=== PATIENT | female | born 1960 | race African-American/Black ===

== ENCOUNTER 2016-08-06 08:26 | Day surgery (SDC) ==
[2016-08-05 10:29] LABS: HEMATOCRIT 20.2 % (37.0-47.0); HEMOGLOBIN 6.3 g/dL (12.0-16.0); MCHC 31.2 g/dL (33-37); MCV 83.5 FL (81-99); PLT 228 X1000 (130-400); RBC 2.42 XMIL (4.2-5.4)
[2016-08-06] MEDS ORDERED: NS 250 ML ONE (08:37)
[2016-08-06] MEDS ORDERED: TYLENOL ONE (08:53)
[2016-08-06] MEDS ORDERED: BENADRYL ONE (08:53)
[2016-08-06] MEDS ORDERED: HEPARIN ONE (11:03)
[2016-08-06 12:47] VITALS: BP 137/65
== END 2016-08-06 12:45 | disposition home or self-care (01) ==
LOC: INF 08:26
PROVIDERS: ATTEND Nurse Practitioner
DX: D64.9 Anemia, unspecified (principal); D47.4 Osteomyelofibrosis; Z79.899 Other long term (current) drug therapy; Z79.84 Long term (current) use of oral hypoglycemic drugs; Z79.82 Long term (current) use of aspirin
CPT/HCPCS: 36430; 85027; 86850; 86900; 86901; 86920; J7050; P9016

== ENCOUNTER 2018-09-02 04:24 | Inpatient (IN) ==
--- NOTE | 2018-09-02 06:12 | PROVIDER DOCUMENTATION ---
HPI-General Adult - General Chief Complaint: Fall Stated Complaint: fall Time Seen by Provider: 09/02/18 05:10 Source: patient Allergies/Adverse Reactions: Patient Allergies Allergy/AdvReac Type Severity Reaction Status Date / Time etodolac [From Lodine] Allergy Mild ABDOMINAL Verified 06/15/18 05:54 PAIN Home Medications: Home Medication List Medication Instructions Recorded Confirmed Last Taken Type Carvedilol 25 mg PO BID 08/24/12 08/19/18 08/19/18 History Omeprazole [Prilosec] 40 mg PO DAILY 09/26/13 08/19/18 08/19/18 History Aspirin [[place] Aspirin EC] 81 mg PO DAILY 09/19/14 08/19/18 08/19/18 History Losartan/Hctz [Hyzaar 100/12.5 mg 1 tab PO DAILY 03/11/17 08/19/18 08/19/18 History Tab] Montelukast Sodium 10 mg PO DAILY 03/11/17 08/19/18 08/19/18 History Travoprost [Travatan Z] 1 drop BOTH EYES QHS 03/11/17 08/19/18 08/18/18 History Deferasirox [Exjade] 1,500 mg PO DAILY 05/21/17 08/19/18 08/18/18 History Docusate Sodium [Stool Softener] 100 mg PO BID 04/12/18 08/19/18 08/19/18 History Ruxolitinib Phosphate [Jakafi] 25 mg PO BID 04/12/18 08/19/18 08/19/18 History Docusate Sodium [Colace] 100 mg PO BID #30 capsule 06/15/18 08/19/18 08/19/18 Rx Hydroxyurea 500 mg PO DAILY 07/08/18 08/19/18 08/19/18 History Tramadol [Ultram] 50 mg PO Q8HR PRN #20 tab 07/23/18 08/19/18 08/18/18 Rx - History of Present Illness -Gen Adult Nature of Presenting Problems: 57 y/o presents to the ED complaining of generalized weakness. States when she got up out of bed today she felt weak and had a mechanical fall due to this weakness. No impaction of head and no other injuries. States since she has continued to feel weak. Has a blood transfusion scheduled with the infusion center today. No chest pain no dyspnea no cough no fever. Review of Systems - Adult - REVIEW OF SYSTEMS - ADULT Constitutional: reports: no symptoms reported Eyes: reports: no symptoms reported Ears, Nose, Mouth & Throat: reports: no symptoms reported Cardiovascular: reports: no symptoms reported Respiratory: reports: no symptoms reported Gastrointestinal: reports: no symptoms reported Genitourinary: reports: no symptoms reported Musculoskeletal: reports: no symptoms reported Integumentary: reports: no symptoms reported Neurological: reports: no symptoms reported Psychiatric: reports: no symptoms reported Endocrine: reports: no symptoms reported Hematologic/Lymphatic: reports: no symptoms reported Allergic/Immunologic: reports: no symptoms reported All Other Systems: Reviewed and Negative Past History - Adult - PAST MEDICAL HISTORY-ADULT Review of Records: reports: Old Records Reviewed, Nursing Assessment Review, Medications Reviewed, Social history reviewed & non-contributory. Major Childhood Illnesses: reports: denies history Cardiovascular: reports: denies history Respiratory: reports: denies history Gastrointestinal: reports: denies history Obstetrical/Gynecological: reports: denies history Genitourinary: reports: denies history Musculoskeletal: reports: denies history Neurological: reports: denies history Endocrine/Immune: reports: denies history, other (BONE MARROW FAILURE/DISEASE) Other Conditions: reports: denies history Physical Exam-General - PHYSICAL EXAM-ADULT Initial Vital Signs Reviewed: Yes - CONSTITUTIONAL General Appearance: appears well, alert, no apparent distress - EYES Eyes: PERRL/EOMI - HEAD, EARS, NOSE, MOUTH & THROAT HENMT: normocephalic/atraumatic, moist mucous membranes, pharynx normal - NECK Neck: non-tender, full range of motion, supple - RESPIRATORY Respiratory: chest non-tender, lungs clear, normal breath sounds - CARDIOVASCULAR Cardiovascular: normal peripheral pulses, regular rate, rhythm, no edema - GASTROINTESTINAL (ABDOMEN) Abdominal Exam: non tender, soft - MUSCULOSKELETAL Back Exam: normal inspection, no CVA tenderness, no vertebral tenderness Extremity: normal range of motion, non-tender, normal gait - SKIN Integumentary: normal color, normal turgor, warm/dry - NEUROLOGIC Neurologic: hyperion essbase developer II-XII nml as tested, grossly normal, no motor/sensory deficits - PSYCHIATRIC Psych/Mental Status: normal mood/affect, normal thought content, normal thought process, oriented x 3 Progress - PLAN OF CARE/RESULTS Progress/Plan/Lab Results: Vital Signs - 8 hr 09/02/18 04:38 Temperature 99.3 F Pulse Rate 88 Respiratory Rate 18 Blood Pressure 121/63 O2 Sat by Pulse Oximetry 99 Orders Category Date Time Status IV Insertion ORDERED Care 09/02/18 05:19 Active Nursing- Obtain EKG ONCE Care 09/02/18 05:[address] HEAD W/O CONTRAST [CT] Stat Exams 09/02/18 05:19 Taken BASIC METABOLIC PANEL [CHEM] Stat Lab 09/02/18 05:19 Uncollected CBC WITH DIFF [HEME] Stat Lab 09/02/18 05:19 Uncollected TROPONIN T Stat Lab 09/02/18 05:19 Uncollected URINALYSIS W/POSS RFLX CULT [URINALYSIS] Stat Lab 09/02/18 05:19 Uncollected EKG [EKG] Stat Ther 09/02/18 05:19 Ordered generalized weakness will further evaluate for causes including but not limited to acs, arrythmia, uti, pna, dehydration, electrolyte imbalance, anemia, other infectious process, cva, tia Result Diagrams: 09/02/18 08:30 09/02/18 07:30 - REASSESSMENT Reassessment #1 Status: improving (feeling well, signed out to AM physician Dr. Corona at 0700 pending lab results and final disposition) - EKG 1 Time of EKG reading by physician:: 06:18 EKG Read and Signed by:: Merle Yap EKG Interpretation (*Must complete 3 of following elements*): Normal (Sinus Rhythm, rate 84, no acute st changes, normal axis and intervals) - CT/MRI 1 CT Study: Head Impression: Normal (per radiologist, no acute abnormality) - CONSULTS/PCP/HOSPITALIST Notification #1 *Consult/PCP/Hospitalist*: DR GARCIA ([facility]) Time Discussed: 09:21 Consult Disposition: Admit Departure - Departure Date of Disposition Decision: 09/02/18 Time of Disposition Decision: 09:21 DIAGNOSIS: Anemia, Anemia aplastic aregenerative, Pancytopenia, Weakness Disposition: ADMITTED INPATIENT 09 Certified Medical Emergency: Emergent Condition: Fair Referrals and Follow-Ups: Leo West MD [Primary Care Provider] - - Critical Care Note This patient required my direct & personal management of CC.: No Attestation - Physician/ NOMAN Attestation The physician spent face to face time with patient:: Yes Advanced Practice Provider documentation review:: Supervising physician onsite and consulted in the evaluation and care of this patient. The physician did have a face to face encounter with the patient.
--- NOTE | 2018-09-02 07:08 | Diag Imaging Result Doc PS360 ---
EXAM: CT HEAD W/O CONTRAST 09/02/2018 HISTORY: weakness TECHNIQUE: This exam was performed using automated exposure control, adjustment of mA or kV according to patient size, and/or use of iterative reconstruction technique. COMMENT: There are no previous studies available for comparison. There are calcifications in the caudate nucleus and globus pallidus on the left. There is a lacune in the right sigala radiata. There is no evidence of mass effect bleed or abnormal extra-axial fluid collection. The paranasal sinuses are clear as seen. There is no evidence of acute bony abnormality. IMPRESSION: Chronic ischemic changes. No evidence of acute intracranial disease. Electronically signed by Remy Martinez 09/02/2018 7:06 AM
--- NOTE | 2018-09-02 07:11 | EKG Report ---
Test Performed on : 09/02/2018 06:16:47 AM Test Reason : generalized weakness Blood Pressure : / mmHG Vent. Rate : 084 BPM Atrial Rate : 084 BPM P-R Int : 200 ms QRS Dur : 098 ms QT Int : 400 ms P-R-T Axes : 039 033 -33 degrees QTc Int : 472 ms Normal sinus rhythm. Cannot rule out Anterior infarct (cited on or before 24-AUG-2012) T wave abnormality, consider inferior ischemia Abnormal ECG When compared with ECG of 18-JUL-2018 08:07, (Unconfirmed) No significant change was found Unconfirmed Result
[2018-09-02 08:14] LABS: POTASSIUM 3.3 mmol/L (3.5-5.1)
[2018-09-02 08:52] LABS: EOS# 0.02 X1000 (0.0-0.7); EOS% 2.6 % (0.0-10.0); HEMATOCRIT 13.9 % (37.0-47.0); HEMOGLOBIN 4.6 g/dL (12.0-16.0); IMM GRAN# 0.05 X1000 (0.0-0.04); IMM GRAN% 6.4 % (0.0-0.5); LYMPH# 0.31 X1000 (1.2-3.4); LYMPH% 39.7 % (20.5-51.1); MCH 27.9 PG (27-31); MCHC 33.1 g/dL (33-37); MCV 84.2 FL (81-99); MONO# 0.07 X1000 (0.11-0.59); MPV 10.4 FL (7.4-10.4); NEUT# 0.33 X1000 (1.4-6.5); NEUT% 42.3 % (42.2-75.2); PLT 103 X1000 (130-400); RBC 1.65 XMIL (4.2-5.4); RDW 13.7 % (11.5-14.5); WBC 0.78 X1000 (4.8-10.8)
[2018-09-02 09:27] LABS: BANDS 10 % (0-1); LYMPHS 40 % (21-51); SEGS 50 % (42-75)
[2018-09-02 09:51] LABS: MAGNESIUM 1.5 mg/dL (1.5-2.7)
[2018-09-02 10:14] LABS: FREE T4 1.51 ng/dL (0.93-1.70); TSH 2.02 uIUmL (0.27-4.20)
[2018-09-02 10:19] LABS: INR 1.09
[2018-09-02] MEDS ORDERED: NS 500 ML ONE ×2 (10:30→13:57)
[2018-09-02] MEDS ORDERED: ZOFRAN IV PRN (10:57)
[2018-09-02] MEDS: HUMULIN R SUBQ SCH ×3 (11:00→21:00)
[2018-09-02 11:21] LABS: RETIC% 0.14 % (0.8-2.1)
--- NOTE | 2018-09-02 11:33 | HISTORY AND PHYSICAL ---
HISTORY: Ms. Ojeda presented to the emergency room. She got up to go to the bathroom this morning. She has been feeling weak now for a couple of weeks, but she just could not get off the commode, and she fell and bumped her head. She does not feel she had any loss of consciousness. PAST MEDICAL HISTORY: 1. Myelofibrosis followed by Dr. Paul. 2. 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 3. Diabetes mellitus type 2. 4. Hypertension. 5. Gastroesophageal reflux disease. 6. Hyperlipidemia. PAST SURGICAL HISTORY: She has had biopsies in the past. I do not have any further details. SOCIAL HISTORY: No tobacco, alcohol or drug use. She lives at home with her children in [place]. FAMILY HISTORY: She denies any history of heart, lungs or blood dyscrasias. REVIEW OF SYSTEMS: No report of fever or chills. She has just been feeling very weak and lightheaded. No bruising. Her arm she says has been kind of hurting her. No chest pain. No change in bowels. No blood in her stool. No gross hematuria. On musculoskeletal and neurologic, just general weakness. No focal complaints. On endocrinologic and hematologic, no significant history other than myelofibrosis, diabetes and hyperlipidemia. PHYSICAL EXAMINATION: VITAL SIGNS: Temperature 99.3 degrees, pulse 88, respirations 18, and blood pressure 121/63. HEENT: Pupils are equal and round. Conjunctiva pale with pallor and same with gingiva, very pale. CVP less than 6 cm. Sclerae clear. Carotid, radial, and femoral pulses 1+ and symmetrical. CARDIOVASCULAR: Regular rhythm and rate without murmur or S3. PMI nondisplaced. ABDOMEN: Soft. LUNGS: Clear in all lung tamez. LABORATORY: White count 780, hematocrit is 13, hemoglobin 4.6, and platelet count 103,000. MCV is 84. We will check her iron studies and retic count, B12, folate, T4, and TSH. The rest of her labs show sodium 139, potassium 3.3, chloride 102, BUN 35, creatinine 2.0, and blood sugar 153. Actually, they suzanne some iron studies here. Iron is 107, TIBC is 335, ferritin is 4356. Troponin level is less than 0.01. B12 was 503, folate is 7.3. We will give her some folate 1 mg twice a day p.o. would be fine. TSH is 2.0. T4 is 1.5 which is normal. ProTime 15. PTT is 35. Head CT without contrast. Chronic ischemic changes. No evidence of acute intracranial disease. No sign of bleed. ASSESSMENT AND PLAN: 1. Myelofibrosis with severe anemia appears to be macrocytic. We will give her transfusion, try and get her hemoglobin above [address] Paul. We will consult him as well to help us in management. 2. Diabetes mellitus type 2. Check pattern sugars. 3. Hypertension. Follow blood pressures. 4. Gastroesophageal reflux disease. 5. Hyperlipidemia. CURRENT MEDICATIONS: At home: 1. Aspirin 81 mg a day which we will continue. 2. Coreg 25 mg b.i.d. I think we will continue that as well. Blood pressure seems to be stable. We are giving her blood. 3. Colace 100 mg b.i.d. 4. She takes linagliptin and metformin 2.5/150 mg 1 a day. I will make sure she is eating diabetic diet. I may hold that today and just make sure she is eating good before we give her the linagliptin and metformin. 5. We will put her on her losartan/hydrochlorothiazide 100/12.5 one a day. H 6. Montelukast 10 mg a day. 7. Prilosec 40 mg a day. 8. She takes Jakafi which is ruxalitinib 25 mg b.i.d. She takes that for her myelofibrosis I believe. cc: London Le MD
[2018-09-02] MEDS ORDERED: BENADRYL ONE (12:30)
[2018-09-02] MEDS: TYLENOL PO PRN (12:32)
[2018-09-02 13:27] LABS: URINE SOURCE CLEAN CATCH
[2018-09-02 13:34] LABS: BILIRUBIN URINE NEGATIVE (NEGATIVE); BLOOD URINE TRACE (NEGATIVE); COLOR YELLOW; GLUCOSE URINE NEGATIVE (NEGATIVE); KETONE URINE NEGATIVE (NEGATIVE); LEUKOCYTES URINE NEGATIVE (NEGATIVE); NITRITE URINE NEGATIVE (NEGATIVE); PH URINE 5.5; PROTEIN URINE TRACE mg/dL (NEGATIVE); SP GRAVITY URINE 1.002; TURBIDITY URINE CLEAR (CLEAR); UROBILINOGEN URINE NORMAL (NORMAL)
[2018-09-02 13:35] LABS: UR EPITHELIAL CELLS <10 /HPF (<10); URINE BACTERIA NEGATIVE /HPF; URINE RBC <10 /HPF (<10); URINE WBC <10 /HPF (<10)
--- NOTE | 2018-09-02 14:52 | Diag Imaging Result Doc PS360 ---
EXAM: FLAT/UPRIGHT ABD/1 VIEW CHEST 09/02/2018 HISTORY: fever; sob; anemia TECHNIQUE: AP upright chest and flat and upright abdomen at 0940 COMMENT: There is some gas and stool in the colon. The small bowel and stomach are not distended. There is apparent splenomegaly. There is a Port-A-Cath on the right. The heart size and primary vascularity are within normal limits and the lungs are clear. IMPRESSION: Splenomegaly. Electronically signed by Remy Martinez 09/02/2018 2:50 PM
[2018-09-02] MEDS: NS 1,000 ML IV SCH (15:30)
[2018-09-02] MEDS: COLACE PO SCH (21:00)
[2018-09-02] MEDS ORDERED: BENADRYL PO SCH (21:00)
[2018-09-03] MEDS: PRILOSEC PO SCH ×2 (00:38→09:34)
[2018-09-03] MEDS: COREG PO SCH ×2 (00:39→09:34)
[2018-09-03] MEDS: PATIENT'S OWN MED PO SCH ×2 (01:05→09:35)
[2018-09-03] MEDS: FOLIC ACID PO SCH ×2 (01:16→09:34)
[2018-09-03] MEDS: TYLENOL PO PRN (05:50)
[2018-09-03] MEDS: NS 1,000 ML IV SCH (05:50)
[2018-09-03] MEDS: HUMULIN R SUBQ SCH ×2 (06:36→11:39)
[2018-09-03 07:35] LABS: INR 1.18; PROTIME 15.9 Seconds (11.0-16.0)
[2018-09-03 07:36] LABS: PTT 32.8 Seconds (22.3-41.8)
[2018-09-03 08:02] LABS: ALB/GLOB RATIO 1.1; ALBUMIN 3.3 g/dL (3.5-5.0); CALCIUM 8.7 mg/dL (8.8-10.2); CREATININE 1.6 mg/dL (0.5-0.9); MAGNESIUM 1.5 mg/dL (1.5-2.7); TOTAL BILIRUBIN 0.97 mg/dL (0.20-1.00); TOTAL PROTEIN 6.2 g/dL (6.3-8.3)
[2018-09-03 08:04] LABS: BASO# 0.01 X1000 (0.0-0.2); EOS# 0.01 X1000 (0.0-0.7); HEMATOCRIT 23.9 % (37.0-47.0); HEMOGLOBIN 8.2 g/dL (12.0-16.0); IMM GRAN# 0.05 X1000 (0.0-0.04); IMM GRAN% 5.2 % (0.0-0.5); LYMPH# 0.35 X1000 (1.2-3.4); LYMPH% 36.1 % (20.5-51.1); MCH 28.8 PG (27-31); MCHC 34.3 g/dL (33-37); MCV 83.9 FL (81-99); MONO# 0.15 X1000 (0.11-0.59); MONO% 15.5 % (1.7-9.3); MPV 10.7 FL (7.4-10.4); NEUT% 41.2 % (42.2-75.2); PLT 125 X1000 (130-400); RBC 2.85 XMIL (4.2-5.4); RDW 13.8 % (11.5-14.5); WBC 0.97 X1000 (4.8-10.8)
[2018-09-03 08:07] LABS: BANDS 20 % (0-1); LYMPHS 35 % (21-51); SEGS 20 % (42-75)
[2018-09-03 08:08] LABS: ATYPICAL LYMPH 5 %; MONO 5 % (1-9)
[2018-09-03] MEDS ORDERED: HYZAAR 100/12.5 MG TAB PO SCH (09:00)
[2018-09-03] MEDS ORDERED: SINGULAIR PO SCH (09:00)
[2018-09-03] MEDS ORDERED: ASPIRIN EC PO SCH (09:00)
[2018-09-03] MEDS: COLACE PO SCH (09:34)
[2018-09-03 13:10] VITALS: BP 150/52
--- NOTE | 2018-09-03 15:24 | DISCHARGE SUMMARY ---
ADMISSION DATE: 09/02/2018 DISCHARGE DATE: HISTORY OF PRESENT ILLNESS: She is followed by Dr. West. She is a 31-year-old who got up for the bathroom this morning and she was weak and could not get off the commode and fell. She came in with severe anemia. PAST MEDICAL HISTORY: 1. Myelofibrosis followed by Dr. Paul. 2. Chronic anemia related to myelofibrosis, requiring multiple blood transfusions. 3. Diabetes mellitus type 2. 4. Hypertension. 5. Gastroesophageal reflux disease. 6. Hyperlipidemia. PAST SURGICAL HISTORY: She has had some biopsies, not sure of those details of the bone marrow biopsy. ADMISSION DIAGNOSIS: 1. Myelofibrosis. 2. Severe anemia. HOSPITAL COURSE: Her hematocrit was 13 and her hemoglobin 4.6. Gave her 2 units of blood, brought her hemoglobin up to 8.2 and hematocrit up to 23. She felt much better and was requesting to go home the following morning. We will discharge her on her current medicines: 1. Aspirin 81 mg a day. 2. Carvedilol 25 mg b.i.d. 3. Docusate sodium 100 mg b.i.d. 4. Linagliptin/metformin 2.5/850 one tab a day. 5. Losartan 1 tablet a day. 6. Montelukast 10 mg a day. 7. Prilosec 40 mg a day. 8. Jakafi 25 mg b.i.d. FOLLOWUP: She is follow up with her primary care and follow up with Dr. Paul. cc: London Le MD
== END 2018-09-03 15:49 | disposition home or self-care (01) | DRG 812 ==
LOC: SUPCPDRO → ED 04:24 → EDIPHOLD 11:02 → 3N 23:49
PROVIDERS: ATTEND Emergency Medicine
CPT/HCPCS: 36430; 70450; 74022; 80048; 80053; 81001; 82607; 82728; 82746; 82948; 83540; 83550; 83605; 83735; 83880; 84439; 84443; 84484; 85025; 85027; 85045; 85610; 85730; 86850; 86900; 86901; 86905; 86922; 87040; 93005; 94760; 94761; 94799; 99285; A9270; J2405; J7030; J7040; P9016; XXXXX

== ENCOUNTER 2018-12-15 10:11 | Inpatient (IN) ==
[2018-12-15 11:35] LABS: INR 1.15; PROTIME 15.6 Seconds (11.0-16.0)
[2018-12-15 11:37] LABS: BASO# 0.04 X1000 (0.0-0.2); BASO% 5.1 % (0.0-0.8); EOS# 0.01 X1000 (0.0-0.7); EOS% 1.3 % (0.0-10.0); HEMATOCRIT 15.1 % (37.0-47.0); HEMOGLOBIN 4.9 g/dL (12.0-16.0); IMM GRAN# 0.02 X1000 (0.0-0.04); IMM GRAN% 2.5 % (0.0-0.5); LYMPH# 0.42 X1000 (1.2-3.4); LYMPH% 53.2 % (20.5-51.1); MCH 27.5 PG (27-31); MCHC 32.5 g/dL (33-37); MCV 84.8 FL (81-99); MONO% 12.7 % (1.7-9.3); MPV 10.2 FL (7.4-10.4); NEUT% 25.2 % (42.2-75.2); PLT 659 X1000 (130-400); PTT 45.3 Seconds (22.3-41.8); RBC 1.78 XMIL (4.2-5.4); RDW 15.3 % (11.5-14.5); WBC 0.79 X1000 (4.8-10.8)
[2018-12-15 11:40] LABS: AGAP 18; ALB/GLOB RATIO 1.1; ALBUMIN 3.8 g/dL (3.5-5.0); ALKALINE PHOSPHATASE 190 U/L (32-104); BUN 67 mg/dL (8-22); CALCIUM 9.2 mg/dL (8.8-10.2); CHLORIDE 102 mmol/L (98-107); COSMO 294; CREATININE 8.8 mg/dL (0.5-0.9); ESTIMATED GFR 6; GLUCOSE 104 mg/dL (70-104); GOT 13 U/L (10-30); GPT < 5 U/L (10-36); SODIUM 137 mmol/L (136-145); TCO2 17 mmol/L (25-35); TOTAL BILIRUBIN 0.52 mg/dL (0.20-1.00); TOTAL PROTEIN 7.2 g/dL (6.3-8.3)
[2018-12-15 12:45] LABS: URINE SOURCE CLEAN CATCH
[2018-12-15 12:52] LABS: BILIRUBIN URINE NEGATIVE (NEGATIVE); BLOOD URINE MODERATE (NEGATIVE); COLOR YELLOW; GLUCOSE URINE NEGATIVE (NEGATIVE); KETONE URINE NEGATIVE (NEGATIVE); LEUKOCYTES URINE SMALL (NEGATIVE); NITRITE URINE NEGATIVE (NEGATIVE); PH URINE 5.5; PROTEIN URINE 100 mg/dL (NEGATIVE); SP GRAVITY URINE 1.011; TURBIDITY URINE HAZY (CLEAR); UROBILINOGEN URINE NORMAL (NORMAL)
[2018-12-15 13:00] LABS: UR CREAT RANDOM 105.4 mg/dL (11-20); UR PROT RANDOM 125.5 mg/dL
[2018-12-15 13:02] LABS: UR EPITHELIAL CELLS <10 /HPF (<10); URINE BACTERIA NEGATIVE /HPF; URINE RBC TNTC /HPF (<10); URINE WBC 20-40 /HPF (<10)
--- NOTE | 2018-12-15 13:09 | PROVIDER DOCUMENTATION ---
This chart was entered by Gloria Whitfield Scribe, acting as scribe for Vinita Reed MD. HPI-General Adult - General Chief Complaint: Abnormal Lab[s] Stated Complaint: KIDNEY PROBLEMS,SENT OVER BY Time Seen by Provider: 12/15/18 10:37 Source: patient Allergies/Adverse Reactions: Patient Allergies Allergy/AdvReac Type Severity Reaction Status Date / Time etodolac [From Lodine] Allergy Mild ABDOMINAL Verified 09/02/18 09:42 PAIN Home Medications: Home Medication List Medication Instructions Recorded Confirmed Last Taken Type Carvedilol 25 mg PO BID 08/24/12 12/01/18 12/01/18 History Omeprazole [Prilosec] 40 mg PO DAILY 09/26/13 12/01/18 12/01/18 History Losartan/Hctz [Hyzaar 100/12.5 mg 1 tab PO DAILY 03/11/17 12/01/18 12/01/18 Hist ory Tab] Montelukast Sodium 10 mg PO DAILY 03/11/17 12/01/18 12/01/18 History Docusate Sodium [Stool Softener] 100 mg PO BID 04/12/18 12/01/18 12/01/18 History Deferasirox [Exjade] 1,500 mg PO DAILY 09/13/18 12/01/18 12/01/18 History Apixaban [Eliquis] 5 mg PO DAILY 10/06/18 12/01/18 12/01/18 History Levofloxacin 500 mg PO DAILY 10/28/18 12/01/18 12/01/18 History - History of Present Illness -Gen Adult Nature of Presenting Problems: Patient is a 58 year old female who presents with abnormal labs. Patient states having blood work done at Dr. Paul's office and was informed her hemoglobin was low and her creatinine and BUN was elevated. States history of myelofibrosis and thrombocytopenia. Reports she has had multiple blood transfusions over the past 7 years. Denies pain. Location of Pain/Injury: reports: none Quality of Pain: reports: none Severity: reports: mild Onset/Duration: reports: gradual Timing: reports: still present Modifying Factors: improves with: nothing Associated Symptoms: reports: denies symptoms Similar Symptoms Previously?: Yes Recently seen or treated by another doctor?: Yes Review of Systems - Adult - REVIEW OF SYSTEMS - ADULT Constitutional: reports: no symptoms reported. denies: chills, fever, fatique Eyes: reports: no symptoms reported Ears, Nose, Mouth & Throat: reports: no symptoms reported Cardiovascular: reports: no symptoms reported Respiratory: reports: no symptoms reported Gastrointestinal: reports: no symptoms reported. denies: abdominal pain, diarrhea, nausea, vomiting Genitourinary: reports: no symptoms reported Musculoskeletal: reports: no symptoms reported Integumentary: reports: no symptoms reported Neurological: reports: no symptoms reported. denies: dizziness/vertigo, headache/migraines, syncope Psychiatric: reports: no symptoms reported Endocrine: reports: no symptoms reported Hematologic/Lymphatic: reports: no symptoms reported Allergic/Immunologic: reports: no symptoms reported All Other Systems: Reviewed and Negative Past History - Adult - PAST MEDICAL HISTORY-ADULT Review of Records: reports: Old Records Reviewed, Nursing Assessment Review, Medications Reviewed, Social history reviewed & non-contributory. Major Childhood Illnesses: reports: denies history Cardiovascular: reports: HTN, hyperlipidemia Respiratory: reports: denies history Gastrointestinal: reports: denies history Obstetrical/Gynecological: reports: denies history Genitourinary: reports: denies history Musculoskeletal: reports: denies history Neurological: reports: denies history Psychiatric: reports: denies history Endocrine/Immune: reports: Diabetes, other (BONE MARROW FAILURE/DISEASE) Other Conditions: reports: denies history - PRIOR SURGERIES/PROCEDURES Surgical/Procedure History: reports: reviewed, not pertinent - IMMUNIZATION STATUS Childhood Immunizations: See Nurse Assessment Flu Vaccine: See Nurse Assessment - FAMILY HISTORY Family History: reviewed, not pertinent - SOCIAL HISTORY Smoking: chew, less than 1 pack/day Provider spent 3-5 mins advising pt. on dangers of tobacco.: Discussed manners to quit use, and f/u contacts for add'l counseling. Substance Use: denies Living Situation: family Physical Exam-General - PHYSICAL EXAM-ADULT Initial Vital Signs Reviewed: Yes - CONSTITUTIONAL General Appearance: alert, no apparent distress. negative: lethargic - EYES Eyes: PERRL/EOMI, pale conjunctivae. negative: subconjunctival hemorrhage - HEAD, EARS, NOSE, MOUTH & THROAT HENMT: normocephalic/atraumatic, moist mucous membranes. negative: angioedema - NECK Neck: non-tender, normal inspection. negative: limited range of motion - RESPIRATORY Respiratory: chest non-tender, lungs clear, normal breath sounds. negative: crackles - CARDIOVASCULAR Cardiovascular: normal peripheral pulses, regular rate, rhythm, systolic murmur (3/6). negative: tachycardia - GASTROINTESTINAL (ABDOMEN) Abdominal Exam: normal bowel sounds, non tender, soft. negative: rebound - MUSCULOSKELETAL Extremity: non-tender, normal inspection. negative: deformity, swelling - SKIN Integumentary: normal color, normal turgor, warm/dry. negative: cyanosis, ecchymosis, jaundice - NEUROLOGIC Neurologic: grossly normal. negative: aphasia, facial droop - PSYCHIATRIC Psych/Mental Status: normal mood/affect, oriented x 3. negative: anxious Progress - PLAN OF CARE/RESULTS Progress/Plan/Lab Results: Vital Signs - 8 hr 12/15/18 10:17 Temperature 98.0 F Pulse Rate 103 H Respiratory Rate 20 Blood Pressure 123/67 O2 Sat by Pulse Oximetry 95 Result Diagrams: 12/15/18 10:50 12/15/18 10:50 - CONSULTS/PCP/HOSPITALIST Notification #1 *Consult/PCP/Hospitalist*: AMALIA Gonsales for Hospitalist Time Discussed: 11:56 Reason/Comments: Dr. Reed consulted with Ilda about patient Consult Disposition: Will see in ED, Admit Departure - Departure Date of Disposition Decision: 12/15/18 Time of Disposition Decision: 11:56 DIAGNOSIS: Anemia, Renal failure Disposition: ADMITTED INPATIENT 09 Certified Medical Emergency: Emergent Condition: Stable - Critical Care Note This patient required my direct & personal management of CC.: Yes Total Time (mins): 46 Critical Care Statement: This patient required my direct personal management to treat or rule out processes, the absence of which, could potentiallly result in sudden, clinically significant life or limb threatening deterioration. Attestation - Physician/ NOMAN Attestation The physician spent face to face time with patient:: Yes Advanced Practice Provider documentation review:: Supervising physician onsite and consulted in the evaluation and care of this patient. The physician did have a face to face encounter with the patient. This chart was documented by the indicated scribe, (Gloria Whitfield Scribe) and accurately reflects the services I performed and decisions made by me, Vinita Reed MD, as attested by the provider's signature.
--- NOTE | 2018-12-15 13:26 | Diag Imaging Result Doc PS360 ---
EXAM: CHEST-PORTABLE 12/15/2018 HISTORY: cough TECHNIQUE: AP portable upright at 1317 COMMENT: There is a Port-A-Cath on the right with its tip in the right atrium. There is no evidence of acute cardiac or pulmonary disease. Compared to 10/27/2018 there has been no significant change in the appearance of the chest. IMPRESSION: No evidence of acute disease. Electronically signed by Remy Martinez 12/15/2018 1:24 PM
[2018-12-15] MEDS ORDERED: ZOFRAN IV PRN (13:35)
[2018-12-15] MEDS: NS 1,000 ML IV SCH (13:52)
--- NOTE | 2018-12-15 14:34 | HISTORY AND PHYSICAL ---
CHIEF COMPLAINT: Sent from Dr. Paul office for blood work. HISTORY OF PRESENT ILLNESS: Ms. Ojeda is a 58-year-old - Vietnamese female who carries a past medical history of myelofibrosis, followed by Dr. Paul, chronic anemia related to myelofibrosis requiring multiple blood transfusions per patient report, cystic fibrosis, diabetes mellitus type 2, hypertension, GERD, hyperlipidemia, who reports that she is at Dr. Paul office today and was sent over for abnormal lab work with her low blood count and kidney function. She did report on Thursday and Thursday she was unable to really urinate. She would get the sensation and could feel it start to come out and than she would either not be able to void or only a little would dribble out. She reports today she started back with her urination. She has gone 6 times today. It was a darker color yellow. She reports she drinks 32 ounces of water per day. She also reports decrease in appetite over the last 2 months when she was taken off metformin and placed on a new blood sugar pill. She also reports a cough over the last 4 to 5 months with clear sputum production that is worse in the morning times. She denies any weakness, fever, chills, chest pain, nausea, vomiting, or diarrhea. Workup in the ED revealed her hemoglobin and hematocrit to be 4.9 and 16. She had a BUN of 69 and a creatinine of 8.8. She is currently given orders to transfuse 1 unit in the ED. We will add 2 more units to that for a total of [address] her in the [facility] with consults for Dr. Gonzalez and Dr. Paul. PAST MEDICAL HISTORY: 1. Myelofibrosis followed by Dr. Paul. 2. Chronic anemia related to myelofibrosis requiring multiple blood transfusions. 3. Diabetes mellitus type 2. 4. Reported cystic fibrosis. 5. Hypertension. 6. Gastroesophageal reflux disease. 7. Hyperlipidemia. PAST SURGICAL HISTORY: 1. Biopsies bone marrow. 2. Right upper chest port placement. SOCIAL HISTORY: No tobacco, alcohol or illicit drug use. She lives at home with her children in [place]. FAMILY HISTORY: Denies. REVIEW OF SYSTEMS: Twelve-point review of systems complete and negative except for those mentioned in HPI. ALLERGIES: To L[place] causes abdominal pain. HOME MEDICATIONS: Have not been verified. PHYSICAL EXAMINATION: VITAL SIGNS: Temperature is 98 degrees, heart rate 103, respirations 20, blood pressure 127/58, O2 95% on room air. GENERAL: Ms. Ojeda is a pleasant 58-year-old female who is sitting up in the bed in no acute distress. HEENT: Atraumatic, normocephalic. PERRL. NECK: Supple, trachea midline. CARDIOVASCULAR: S1, S2 appreciated. Positive for murmur. ABDOMEN: Soft, nontender, nondistended. Positive bowel sounds 4 quads. EXTREMITIES: Lower extremities were negative for edema. No signs of clubbing or cyanosis. Bilateral pedal pulses are palpable are palpable. NEUROLOGIC: No focal deficits noted. DIAGNOSTIC DATA: Pending. Chest x-ray and renal ultrasound. LABORATORY DATA: CBC: White count is 0.79, hemoglobin and hematocrit 4 and 15, platelet count 659,000. Sodium 137, potassium 5.0, BUN 67, creatinine 8.8, blood glucose is 104. Currently pending urinalysis and extra renal labs ordered. ASSESSMENT AND PLAN: 1. Myelofibrosis with severe anemia. We will transfuse with a total of 3 units of packed red blood cells. We will recheck her hemoglobin and hematocrit after the 3rd unit. Continue to have Dr. Paul follow her in the hospital. 2. Acute renal failure. The patient reports on Thursday and Thursday not really being able to urinate. However, today she has urinated over 6 times. It is darker in color. We will check a urinalysis as well as more urine labs an more renal labs. Consult Dr. Paul, continue with IV fluids. Recheck her creatinine and BUN and creatinine in the a.m. Check a renal ultrasound. 3. Diabetes mellitus type 2. Continue sliding scale insulin and pattern blood sugars. 4. Hypertension, continue home medications when verified. 5. Hyperlipidemia aware. 6. Gastroesophageal reflux disease. 7. Patient reports cystic fibrosis, which she used to follow up at [facility]. 8. Further recommendation to follow physician evaluation, laboratory and diagnostic data. Dictated by AMALIA Killian for Delores Irene MD cc: MD Ricardo Betancourt MD Reginald D. Gladish, MD I performed a face to face encounter on the patient. I reviewed all labs and imaging on the patient. I agree with the H&P as dictated. The patient was sent to the ER due to abnormal renal function seen on lab work done in the clinic. The patient reports weakness and decreased urine output. On exam, the patient is alert and oriented x 4. Her lungs are clear to auscultation bilaterally. No peripheral edema noted. The patient has acute renal injury. Will order a renal ultrasound and urine studies. Will start IV fluid hydration and hold nephrotoxic medications. Will consult the elevator constructor hydraulic. MEREDITH
[2018-12-15] MEDS: TYLENOL PO PRN (15:14)
[2018-12-15] MEDS: HUMALOG SUBQ SCH ×2 (16:04→21:50)
--- NOTE | 2018-12-15 17:48 | Diag Imaging Result Doc PS360 ---
US RENAL 2 (RETROPER) COMPLETE - 12/15/2018 INDICATION: elevated creatinine TECHNIQUE: COMPARISON: 07/18/2018 FINDINGS: There is moderate right hydronephrosis. There is also mild left hydronephrosis. Renal sizes remain normal. There are multiple echogenic shadowing areas in the left renal collecting system which may represent stones. The largest is in the lower pole and measures 1.4 cm. Urinary bladder is somewhat distended but otherwise appears normal. The urine is clear. The right kidney measures 11.1 x 5.8 x 5.3 cm. The left kidney measures 10.8 x 4.7 x 4.5 cm. IMPRESSION: 1. Bilateral hydronephrosis right greater than left. 2. There are a couple of large left renal stones. 3. Urinary bladder is grossly normal. Electronically signed by Arvind Kidd 12/15/2018 5:46 PM
[2018-12-15 18:32] LABS: URINE SOURCE CATH
[2018-12-15 18:40] LABS: BILIRUBIN URINE NEGATIVE (NEGATIVE); BLOOD URINE MODERATE (NEGATIVE); COLOR ORANGE; GLUCOSE URINE NEGATIVE (NEGATIVE); KETONE URINE NEGATIVE (NEGATIVE); LEUKOCYTES URINE SMALL (NEGATIVE); NITRITE URINE NEGATIVE (NEGATIVE); PH URINE 5.5; PROTEIN URINE 70 mg/dL (NEGATIVE); SP GRAVITY URINE 1.011; TURBIDITY URINE HAZY (CLEAR); UROBILINOGEN URINE NORMAL (NORMAL)
[2018-12-15 18:43] LABS: UR EPITHELIAL CELLS <10 /HPF (<10); URINE BACTERIA NEGATIVE /HPF; URINE RBC 20-40 /HPF (<10)
[2018-12-15 18:51] LABS: URINE CASTS NONE SEEN; URINE YEAST NONE SEEN
--- NOTE | 2018-12-15 20:50 | Diag Imaging Result Doc PS360 ---
CT ABDOMEN/PELVIS W/O CONTRAST - 12/15/2018 INDICATION: decreased renal function COMPARISON: 07/20/2018 FINDINGS: The lung bases are clear and the heart size is normal. There is severe splenomegaly that has worsened since prior. The spleen measures 16 x 8 cm. There is a Garcia catheter in the urinary bladder. There are several bilateral renal stones. These measure up to about 1 cm. These are significantly larger and more numerous since prior. There are a couple of stones in the urinary bladder. These measure up to about 5 mm. These are either completely excreted, or in the distal UVJ bilaterally. There is moderate bilateral hydronephrosis and hydroureter. There are several calcifications in the pelvis bilaterally mainly in the left side which may be distal ureter stones. Rectum is normal. There are cholecystectomy clips. No bowel obstruction or inflammation. No free air or free fluid. There are moderate degenerative changes of the spine. No acute or suspicious bony lesion. IMPRESSION: 1. Bilateral hydroureteronephrosis. Numerous bilateral renal stones. Bilateral stones in the urinary bladder which are probably obstructing UVJ stones. There are also several stones probably in the left distal ureter. 2. Garcia catheter in the urinary bladder which is decompressed. 3. Severe splenomegaly worsened since prior. This exam was performed using automated exposure control, adjustment of mA or kV according to patient size, and/or use of iterative reconstruction technique Electronically signed by Arvind Kidd 12/15/2018 8:48 PM
--- NOTE | 2018-12-15 20:53 | NEPHROLOGY CONSULTATION ---
DATE: 12/15/2018 REASON FOR ADMISSION: Abnormal blood work per Dr. Paul's office. REASON FOR CONSULTATION: Acute kidney injury associated with volume depletion. CONSULTING PHYSICIAN: Dr. Delores Irene. HISTORY OF PRESENT ILLNESS: Ms. Ojeda is a 58-year-old female, who has a past medical history of myelofibrosis, followed by Dr. Paul with chronic anemia related to her myelofibrosis requiring multiple blood transfusions in the past. The patient has known cystic fibrosis, diabetes mellitus type 2 with hypertension. She has known chronic kidney disease, stage 3. Baseline creatinine of 1.6 to 2 over the last two years. The patient states her primary physician is Dr. West and her trace evidence technician is Dr. Coto. The patient has frequent labs per Dr. Paul's office. She was called today and stated that her blood count was low. She also stated since Thursday and Thursday she was unable to urinate. She would get the sensation with no urine output. She was able to void, but just small amounts. She denies dysuria, though she does have some anuria. No hematuria. She states that normally when her blood count is low she is symptomatic. She has not had any complaints of symptoms. She reports that she does attempt to drink at least 32 ounces of water daily. Positive for decreased appetite over the last month. She was recently taken off her metformin due to elevated creatinine. She denies any weakness. No fever or chills. No chest pain. No increased work of breathing. No nausea, vomiting, or diarrhea. No lower extremity edema. Workup in the ER demonstrated a hemoglobin of 4.9 and hematocrit of 16, BUN of 69 and a creatinine of 8.8. The patient was admitted for further monitoring and evaluation. She is currently on telemetry and is to receive two units of packed red blood cells in [facility]. She continues to receive normal saline at 125 mL an hour. PAST MEDICAL HISTORY: Myelofibrosis, followed by Dr. Paul. Chronic anemia related to her myelofibrosis, requiring multiple blood transfusions. Chronic kidney disease, stage 3. Baseline creatinine of 1.6 to 2. Diabetes mellitus, type 2. Reported cystic fibrosis, hypertension, gastroesophageal reflux disease, and hyperlipidemia. PAST SURGICAL HISTORY: She has had a bone marrow biopsy, right upper chest port placed two years ago per Dr. Batres. SOCIAL HISTORY: She lives at home with her children. Denies any tobacco, alcohol, or illicit drug use. FAMILY HISTORY: Denies any kidney disease. ALLERGIES: Are listed as Lodine, causing abdominal pain. HOME MEDICATIONS: Carvedilol, Prilosec, montelukast, Docusate, Exjade, recently off metformin. She takes tramadol, Hyzaar, and aspirin. REVIEW OF SYSTEMS: Review of systems times 10 with pertinent positives listed above in the HPI. VITAL SIGNS: Current vital signs: Temperature 98, blood pressure 127/58, heart rate 103, respirations 16. She is on room air. Last recorded saturation 91%. She has had 0 recorded in, though she has a liter of normal saline infusing at 125 mL an hour, waiting to get blood product. LABS: Sodium is 137, potassium 5, chloride is 102, CO2 17. BUN 67, creatinine 8.8, glucose 104. Anion gap of 18, calcium 9.2, albumin 3.8. White count 0.79, hemoglobin 4.9, hematocrit 15.1, with a platelet count of 659. RBCs are 1.78. The patient has a Pro time of 15.6, INR 1.15, and PTT 45.3. Urine electrolytes indicate a FENa score of 3.43%. IMAGING: The patient has had a previous echocardiogram indicating an ejection fraction of 65% in November of 2018. Cardiac catheterization in March of [address] Magana PHYSICAL EXAMINATION: General: This is a 58-year-old female resting quietly in bed. She is sitting up. No specific complaints. Skin: Warm and dry. She is in no acute distress. HEENT: Normocephalic, atraumatic. Conjunctiva is pale. She has ANIKET. Mucous membranes are dry. She does have poor dentition. Neck: Supple. Trachea midline. No evidence of JVD. Cardiovascular: Regular rate and rhythm. She has a positive systolic murmur. Lungs: Clear to auscultation bilaterally. Equal excursion. She is on room air. Abdomen: Soft, nontender. Positive bowel sounds. Genitourinary: Not inspected. The patient has minimal urine out. She is currently receiving fluid resuscitation. Extremities: Have no edema, clubbing, or cyanosis. Neurological: She is alert and oriented x3. Able to move all four extremities well. No deficits present. ASSESSMENT AND PLAN: 1. Acute renal failure. This is associated with anuria, no dysuria. The patient is in fluid volume deficit. She currently has her Hyzaar held. We agree with holding her Hyzaar. Continue normal saline at 125 mL an hour. Her FENa score is 3.43. We will continue to monitor her creatinine and BUN with recheck in the morning, keeping strict intake and output. 2. Electrolytes and acid-base balance. These are fairly stable. 3. Anemia. This is low at 4.9. She is to receive two units of packed red blood cells today. 4. Myelofibrosis with severe anemia. Patient is to get a total of three units of packed red blood cells today, followed by Dr. Paul. I would like to thank you for allowing us to follow with this patient. Dictated by AMALIA Troy for Samuel Gonzalez MD Face to face encounter, data reviewed, discussed with Violeta Webster on 12/15/18. I agree with the above assessment and plan of care. cc: AMALIA Troy MD [facility]
--- NOTE | 2018-12-15 20:59 | CONSULTATION ---
DATE OF CONSULTATION: 12/15/2018 ATTENDING AND REFERRING PHYSICIAN: Hospitalist. HISTORY OF PRESENT ILLNESS: This 58-year-old female has a history of myelofibrosis that has resulted in severe anemia. She was at the material preparation worker's office where she was noted to have a hemoglobin of 4. She was admitted for transfusions and it was noted her creatinine was 8.8. The patient had a renal ultrasound that revealed bilateral hydronephrosis, right greater than left and possible stones in the left kidney. A CT stone search, in June 2018 revealed a 1 mm nonobstructing stone in the left mid kidney with no hydronephrosis. The patient denies any flank pains. She has no previous history of renal lithiasis. She denies previous urologic surgery. She states she has recently changed medications. She states that she has been feeling weak, but she states that occurs when she becomes very anemic. PAST MEDICAL HISTORY: Myelofibrosis, chronic anemia, diabetes, hypertension, elevated cholesterol, gastroesophageal reflux disease. CURRENT MEDICATIONS: Documented on the chart. PAST SURGICAL HISTORY: Multiple bone marrow biopsies, Port-A-Cath placement in the right upper chest. SOCIAL HISTORY: No tobacco or alcohol use. ALLERGIES: She denies any fevers. She has had no recent pulmonary or bowel problems. She denies voiding problems. She has had no hematuria. PHYSICAL EXAMINATION: General: A mildly obese, age apparent, normally developed, black female, oriented in all ways and cooperative. HEENT: Normal for age. Lungs: Clear. Cardiovascular: Regular rate and rhythm. Abdomen: Soft, with normal bowel sounds. No hepatosplenomegaly or masses. Genitourinary: Deferred until surgery. Extremities: No clubbing, cyanosis, or edema. Neuro: No focal deficits. LABORATORY EVALUATION: She has a sodium of 137, potassium 5, chloride 102, bicarb 17, BUN 67, creatinine 8.8, alkaline phosphatases elevated at 190. Her white count was 0.79, hemoglobin 4.9, hematocrit 15.1 and platelets are 659,000. Renal ultrasound is as noted in the HPI. IMPRESSION: 1. Myelofibrosis. 2. Severe anemia. 3. Renal failure with a creatinine of 8.8. 4. History of left pyelonephritis. 5. Renal ultrasound that revealed bilateral hydro right greater than left, and possible stones in the left kidney. 6. CT stone search in June 2018 was essentially normal. RECOMMENDATIONS: 1. CT renal stone search today. 2. We will keep n.p.o. after midnight. 3. If the CT scan confirms bilateral hydronephrosis, place bilateral double-J stents. This planned procedure, benefits versus risks, possible complications, including, but not limited to, bleeding, infection, not being able to place the stents retrograde, and the need for further surgery was discussed. She seems to understand and desires to proceed. cc: Damon Ocampo MD MTDD
[2018-12-16 01:57] LABS: BASO# 0.03 X1000 (0.0-0.2); BASO% 3.3 % (0.0-0.8); HEMATOCRIT 22.5 % (37.0-47.0); HEMOGLOBIN 7.4 g/dL (12.0-16.0); IMM GRAN# 0.04 X1000 (0.0-0.04); IMM GRAN% 4.4 % (0.0-0.5); LYMPH# 0.37 X1000 (1.2-3.4); LYMPH% 40.7 % (20.5-51.1); MCH 27.8 PG (27-31); MCHC 32.9 g/dL (33-37); MCV 84.6 FL (81-99); MONO# 0.07 X1000 (0.11-0.59); MONO% 7.7 % (1.7-9.3); MPV 9.8 FL (7.4-10.4); NEUT% 43.9 % (42.2-75.2); PLT 506 X1000 (130-400); RBC 2.66 XMIL (4.2-5.4); RDW 15.6 % (11.5-14.5); WBC 0.91 X1000 (4.8-10.8)
[2018-12-16] MEDS: NS 1,000 ML IV SCH ×4 (05:44→22:24)
[2018-12-16 06:07] LABS: BASO# 0.03 X1000 (0.0-0.2); BASO% 3.3 % (0.0-0.8); EOS# 0.01 X1000 (0.0-0.7); EOS% 1.1 % (0.0-10.0); HEMATOCRIT 22.6 % (37.0-47.0); HEMOGLOBIN 7.4 g/dL (12.0-16.0); LYMPH# 0.32 X1000 (1.2-3.4); LYMPH% 34.8 % (20.5-51.1); MCH 28.7 PG (27-31); MCHC 32.9 g/dL (33-37); MCV 87.7 FL (81-99); MONO# 0.11 X1000 (0.11-0.59); MONO% 14.1 % (1.7-9.3); MPV 10.2 FL (7.4-10.4); NEUT% 48.9 % (42.2-75.2); PLT 489 X1000 (130-400); RBC 2.58 XMIL (4.2-5.4); RDW 15.8 % (11.5-14.5)
[2018-12-16] MEDS: HUMALOG SUBQ SCH ×4 (06:07→21:55)
[2018-12-16 06:09] LABS: NEUT# 0.44 X1000 (1.4-6.5)
[2018-12-16 06:14] LABS: ALBUMIN 3.3 g/dL (3.5-5.0); CALCIUM 8.7 mg/dL (8.8-10.2); CREATININE 6.9 mg/dL (0.5-0.9); MAGNESIUM 1.4 mg/dL (1.5-2.7); PHOSPHORUS 5.9 mg/dL (2.7-4.5); POTASSIUM 4.5 mmol/L (3.5-5.1)
[2018-12-16 06:32] LABS: FERRITIN 4421 ng/mL (13-150)
[2018-12-16] MEDS ORDERED: KEFZOL 1 GM/D5W 1 GM/50 ML IVPB IV ONE (10:28)
[2018-12-16] MEDS ORDERED: STERILE WATER INJ. ONE (10:54)
[2018-12-16] MEDS ORDERED: QUELICIN (DOSE) ONE (10:54)
[2018-12-16] MEDS ORDERED: XYLOCAINE-MPF 2% ONE (10:54)
[2018-12-16] MEDS ORDERED: NEO-SYNEPHRINE ONE (10:54)
[2018-12-16] MEDS ORDERED: AMIDATE ONE (10:55)
--- NOTE | 2018-12-16 11:00 | PROGRESS NOTE ---
DATE: 12/16/2018 SUBJECTIVE: The patient was admitted yesterday for a blood transfusion due to low hemoglobin and hematocrit. The patient received 3 units of packed red blood cells and the patient's labs also show an elevated creatinine up to 8.8. Urology was consulted after a renal ultrasound showed bilateral hydronephrosis. CT scan was also performed yesterday which showed multiple kidney stones in both kidneys as well as multiple stones present within the bladder itself with what appears to be several stones present in the left ureter. The patient has indwelling catheter in place and creatinine has slowly improved at 6.9 today. The patient was made n.p.o. yesterday in preparation for surgery today with cystoscopy and bilateral ureteral stent placement. She denies any abdominal or flank pain. She states that she has been draining well through her catheter without any hematuria. OBJECTIVE: Vital signs: Temperature 98.5 degrees, pulse 85, blood pressure 120/60, oxygenation 100% on room air. General: No acute distress. Resting comfortably in bed, alert and oriented x3. Respiratory: Good respiratory effort without audible wheezing or rales. Abdomen: Soft, nontender, nondistended. No palpable hepatosplenomegaly or palpable masses. Genitourinary: No CVA tenderness. Urethral catheter in place draining clear yellow urine. No suprapubic tenderness. LABORATORY DATA: White blood cell count 0.9, hemoglobin 7.4, hematocrit 22.5, platelets 506,000. Sodium 141, potassium 4.5, chloride 108, bicarb 16, BUN 53, creatinine 6.9, glucose 86, calcium 8.7, ferritin 4421. IMAGING DATA: CT of the abdomen and pelvis were reviewed which showed multiple stones present within bilateral kidneys as well as what appears to be 2 stones present within the bladder near the ureters bilaterally, as well as several smaller stones seen within the left ureter. The patient has bilateral hydronephrosis with his decompressed bladder. ASSESSMENT AND PLAN: Ms. Ojeda is a 58-year-old with myelofibrosis followed by Dr. Paul, chronic anemia, type 2 diabetes, hypertension, gastroesophageal reflux disease, hyperlipidemia, who presents in consultation regarding acute kidney injury with creatinine elevated at 8.[address] scan was performed which showed multiple stones present in the kidney as well as moderate bilateral hydronephrosis with several calcifications seen within the bladder versus distal ureters, as well as several small stones in the left ureter. The patient's renal function is slightly improved today with a creatinine of 6.9. The patient was made n.p.o. yesterday by Dr. Ocampo in preparation for surgery today. I was asked to perform the procedure. Went and discussed the procedure at length with the patient and patient would like to proceed. Discussed the risk of bleeding, worsening infection, inability to remove stones, need for secondary procedures. I will plan to place bilateral stents today and allow her to recover from a renal function standpoint and consider removal of ureteral stones in the future. This was discussed with the patient and her son. We will plan to perform this later today. cc: Martin Aguirre MD MTDD
[2018-12-16] MEDS ORDERED: HALL'S COUGH LOZENGE MT PRN (11:32)
[2018-12-16] MEDS: GRANIX SUBQ SCH (12:35)
[2018-12-16] MEDS: TYLENOL PO PRN ×2 (12:35→18:32)
--- NOTE | 2018-12-16 13:06 | NEPHROLOGY PROGRESS NOTE ---
DATE: 12/16/2018 TIME SEEN: 0750 hours. SUBJECTIVE: Ms. Ojeda is currently resting quietly in bed. Her is at her bedside. She states that she is feeling just a little bit better today. She had a Garcia catheter placed yesterday evening. She had approximately 1190 out to Garcia. States that she felt much better. OBJECTIVE: Her most recent vital signs: Temperature 97.8 degrees, blood pressure 111/47, heart rate 81, respiration 15. She is currently on room air; last recorded saturation 100%. She has had 2899 in; 1190 out to Garcia catheter. General: This is a 58-year-old female. She is resting quietly in bed. Head of the bed is slightly elevated. No acute distress. Skin: Warm and dry. HEENT: Normocephalic, atraumatic. Conjunctiva is pale. She has ANIKET. Mucous membranes are dry. Neck: Supple. Trachea midline. No evidence of JVD. Cardiovascular: She is regular rate and rhythm. She has a soft systolic murmur. Lungs: Clear to auscultation bilaterally. Equal excursion on room air. Abdomen: Soft, nontender. Positive bowel sounds. Genitourinary: Not inspected. Garcia catheter is now in place with clear yellow urine. Extremities: Have trace edema. No clubbing or cyanosis. Integumentary: Patient has a port to her right chest wall. Neurological: Alert and oriented x3. LABORATORY DATA: Sodium is 141, potassium 4.5, chloride 108, CO2 16. BUN 63, creatinine 6.9, glucose 76. Her anion gap is 17, her calcium is 8.7, phosphorus 5.9, magnesium 1.4, albumin 3.3. White count 0.9, hemoglobin 7.4, hematocrit 22.6 with a platelet count of 489. IMAGING STUDIES: The patient had a CT of the abdomen indicating bilateral hydronephrosis with urinary obstruction with stones. ASSESSMENT AND PLAN: 1. Acute renal failure. The patient has been anuric. She has had an increase in her urinary output after Garcia catheter placement yesterday evening. She continues with IV fluid resuscitation. Her Hyzaar remains on hold. She has had documentation of bilateral hydronephrosis followed by Urology with plan for stenting today. We will continue to monitor labs. 2. Bilateral hydronephrosis. This to be followed by Dr. Ocampo and Dr. Aguirre. Plan for bilateral stent placement today. She is NPO. 3. Anemia. This remains low. Followed by Dr. Paul. The patient has chronic myelofibrosis with severe anemia. She received 3 units of packed red blood cells yesterday. 4. Electrolytes. These are acceptable. I would like to thank you for allowing us to follow with this patient. Dictated by AMALIA Troy for Samuel Gonzalez MD Face to face encounter, data reviewed, discussed with Violeta Webster on 12/16/18. I agree with the above assessment and plan of care. cc: AMALIA Troy MD [facility]
[2018-12-16] MEDS ORDERED: MAGNESIUM SULFATE 1 GM/D5W 1 GM/100 ML IVPB IV ONE (18:41)
--- NOTE | 2018-12-16 19:03 | PROGRESS NOTE ---
DATE: 12/16/2018 SUBJECTIVE: The patient is resting comfortably. She states that she feels a lot better today. OBJECTIVE: Vital Signs: Temperature 98.4 degrees, blood pressure 127/67, heart rate 95, respirations 13, O2 saturations 100% on room air. General: This is a chronically ill-appearing elderly female sitting at the edge of the bed in no acute distress. Heart: S1, S2 normal. Tachycardic. Lungs: Equal air entry bilaterally. No wheezing. No rales. No rhonchi. Abdomen: Positive bowel sounds. Soft, nontender, nondistended. Extremities: No edema. No cyanosis. Neurologic: The patient is alert and oriented x4. LABS: White blood cell count 0.9, hemoglobin 7.4, hematocrit 22, platelets 489,000, ANC 0.44. creatinine 6.9, BUN 63, potassium 4.5 ASSESSMENT AND PLAN: 1. Acute kidney injury. Likely secondary to obstructive uropathy secondary to nephrolithiasis complicated by UVJ obstruction. The patient's urine output improved after the vargas catheter was placed yesterday. The patient is scheduled for cystoscopy with bilateral double-J stent placement. Continue with IV fluids. We will monitor the patient's urine output closely. Further management as per the county surveyor and urologist. 2. Myelofibrosis. The patient is currently on neutropenic precautions. She is also receiving Granix. The H/H is improved today. Management as per the oncologist. 3. Hypomagnesemia. We will replace the patient's magnesium. 4. Diabetes mellitus type 2. We will cover the patient with sliding scale insulin. cc: Delores Irene MD [facility]
--- NOTE | 2018-12-16 19:25 | OPERATIVE NOTE ---
PROCEDURE DATE: 12/16/2018 PREOPERATIVE DIAGNOSES: 1. Bilateral hydronephrosis. 2. Acute kidney injury. 3. Bilateral renal stones. 4. Bilateral ureteral stone. POSTOPERATIVE DIAGNOSES: 1. Bilateral hydronephrosis. 2. Acute kidney injury. 3. Bilateral renal stones. 4. Bilateral ureteral stone. PROCEDURE PERFORMED: 1. Cystoscopy. 2. Bilateral retrograde pyelograms. 3. Bilateral ureteral stent placement 6 x 22cm. 4. Removal of bladder stones. SURGEON: Martin Aguirre MD. HEAD ESTHETICIAN: None. COMPLICATIONS: None. BLOOD LOSS: Minimal. DRAINS: Bilateral 6x22 cm ureteral stents, 16-Mongolian Garcia catheter. SPECIMEN REMOVED: Bladder stones for analysis. ANESTHESIA: LMA. INDICATION FOR PROCEDURE: Ms. Ojeda is a 58-year-old who presented to the emergency room after she was found to be significantly anemic and neutropenic. The patient has a history of myelofibrosis and has received therapy for this. The patient was found on labs to have elevated creatinine at 8.8 yesterday, which is down trended to 6.9. Renal ultrasound and CT scan were both performed yesterday, which showed evidence of bilateral renal stones as well as what appears to be 2 bladder stones and several stones within the left ureter. The patient had not had prior stones previously and only had a small stone on the CT scan back in June. It appears that she is rapidly producing stones and they likely are uric acid in origin. Due to acute kidney injury and bilateral hydronephrosis., Urology was consulted for further recommendations. The patient was previously seen by Dr. Ocampo who asked me to perform the procedure on the patient. This was discussed with the patient and her son and they elected to proceed. DESCRIPTION OF PROCEDURE: After informed consent was obtained, the patient brought to the operating room, placed on the table in the supine position. She received preoperative antibiotics and was placed into a dorsal lithotomy position and underwent LMA placement. The patient was prepped and draped in usual sterile fashion. A preop time-out was performed with all participants in agreement, including anesthesia, surgical and nursing staff. I inserted a 21-Mongolian cystourethroscope through the urethra and into the bladder. The patient had a normal urethra. No stricture disease. Once in the bladder, there was no evidence of any trabeculations, diverticula or cellules. Extruding from both ureteral orifices were multiple stone fragments. Roadmaster fluoroscopy was performed which showed no obvious stone seen in the kidney or in the ureters themselves. The entirety of the bladder was inspected with no papillary lesions or cellules. No evidence of cystocele. At which time an open-end catheter was passed through the scope and wire was passed through into the left ureteral orifice and up into the kidney. A small amount of stone fragments were removed and I advanced the open-ended catheter into the proximal ureter and retrograde pyelogram performed which outlined a hydronephrotic collecting system with no obvious filling defects. I advanced the wire back up into the kidney and the open-ended catheter was removed and a 6 x 22 cm stent was then advanced with good curl seen within the collecting system and endoscopically visualized in the bladder. Good drainage seen through and around the stent. A small amount of stone fragments were retrieved from the left ureteral orifice. Attention was then placed to the right side. Open-ended catheter was then advanced and a wire was advanced up into the kidney. The open-ended catheter was placed into the distal ureter. A retrograde pyelogram was performed which showed evidence of hydronephrosis with small filling defect in the distal right ureter. A wire was then passed through the open- ended catheter up into the kidney with good curl. Open-ended catheter was removed and a 6 x 22 cm stent back loaded and was then advanced and good drainage was seen through and around the stent. Multiple stone fragments were seen within the bladder, which were drained out, which were previously ureteral stones. Bilateral collecting system decompressed after placement of stents and the patient's bladder was drained all times with no evidence of active bleeding. All stone fragments were removed and obtained for analysis. The patient's bladder was left full and a 16-Mongolian Garcia catheter was advanced the bladder inflated with 10 mL sterile water and placed to gravity drainage. The patient was awoken and was taken to recovery in stable condition. cc: MD MEREDITH Bourne
[2018-12-17 05:46] LABS: BASO# 0.05 X1000 (0.0-0.2); BASO% 5.3 % (0.0-0.8); HEMATOCRIT 21.8 % (37.0-47.0); HEMOGLOBIN 7.3 g/dL (12.0-16.0); IMM GRAN# 0.06 X1000 (0.0-0.04); IMM GRAN% 6.4 % (0.0-0.5); LYMPH# 0.32 X1000 (1.2-3.4); MCH 28.5 PG (27-31); MCHC 33.5 g/dL (33-37); MCV 85.2 FL (81-99); MONO# 0.14 X1000 (0.11-0.59); MONO% 14.9 % (1.7-9.3); NEUT% 39.4 % (42.2-75.2); PLT 497 X1000 (130-400); RBC 2.56 XMIL (4.2-5.4); RDW 16.2 % (11.5-14.5); WBC 0.94 X1000 (4.8-10.8)
[2018-12-17 05:51] LABS: NEUT# 0.37 X1000 (1.4-6.5)
[2018-12-17 06:02] LABS: ALBUMIN 3.2 g/dL (3.5-5.0); CALCIUM 8.9 mg/dL (8.8-10.2); CREATININE 4.6 mg/dL (0.5-0.9); PHOSPHORUS 5.6 mg/dL (2.7-4.5)
[2018-12-17] MEDS: NS 1,000 ML IV SCH ×3 (06:03→16:31)
[2018-12-17] MEDS: HUMALOG SUBQ SCH ×4 (06:25→21:00)
[2018-12-17] MEDS ORDERED: MAGNESIUM SULFATE 2 GM/S.W.I. 2 GM/50 ML IVPB IV ONE (07:55)
[2018-12-17] MEDS: FOLIC ACID PO SCH (08:22)
--- NOTE | 2018-12-17 08:22 | Diag Imaging Result Doc PS360 ---
EXAM: RETROGRADES 2 OR 3 FILMS 12/16/2018 HISTORY: BILAT STENT PLACEMENT AND BILAT RETROGRADE TECHNIQUE: 38 images, 1.09 mGy, 43 seconds fluoroscopy time. COMMENT: Neither ureter were is completely opacified. Stents were placed bilaterally by Dr. Aguirre. The possibility of ureteropelvic junction stenosis on both sides cannot be excluded. IMPRESSION: Bilateral ureteral stent placement. Electronically signed by Remy Martinez 12/17/2018 8:20 AM
[2018-12-17] MEDS: GRANIX SUBQ SCH (10:13)
--- NOTE | 2018-12-17 13:29 | NEPHROLOGY PROGRESS NOTE ---
DATE: 12/17/2018 SUBJECTIVE: No complaints today. Good urine output. OBJECTIVE: Vital Signs: Blood pressure 124/47, heart rate 94, respirations 21, afebrile. General: No acute distress. Skin: Warm and dry. Neck: Neck veins are not distended. Heart: Regular. Lungs: Equal. Abdomen: Benign. Extremities: No edema. IMPRESSION: 1. Acute kidney injury. Bilateral UPJ obstruction with kidney stones. Creatinine improving following bilateral double-J stent placement. 2. Metabolic acidosis secondary to obstruction. Observe. cc: Samuel Gonzalez MD
--- NOTE | 2018-12-17 14:33 | HEMO/ONC CONSULTATION ---
DATE: 12/16/2018 ADMITTING PHYSICIAN: Dr. Irene. REQUESTING PHYSICIAN: Dr. Irene. We appreciate this consult. CHIEF COMPLAINT: Myelofibrosis and essential thrombocythemia. HISTORY OF PRESENT ILLNESS: Ms. Maye Ojdea is a pleasant 58-year-old female, well known to Dr. Paul with a history of myelofibrosis and essential thrombocythemia. The patient has been maintained on Jakafi and Hydrea, but both medications have been discontinued secondary to persistent profound anemia. Additionally, the patient carries a diagnosis of secondary hemochromatosis and is maintained on Exjade secondary to necessity for frequent transfusions. The patient presented to clinic the day of admission, and was found to have a hemoglobin of 4.9. Additionally, the patient's creatinine was found to be elevated to 8.8, which was a new finding. The patient did report that she was feeling unwell with profound fatigue. She denies any abdominal pain at that time. The patient was sent to [facility] for admission per hospitalist. We are consulted as the patient is well known to us. PAST MEDICAL HISTORY: 1. Myelofibrosis. 2. Essential thrombocythemia. 3. Secondary hemochromatosis. 4. Chronic profound anemia secondary to #1. 5. Diabetes mellitus type 2. 6. Cystic fibrosis. 7. Hypertension. 8. Gastroesophageal reflux disease. 9. Hyperlipidemia. PAST SURGICAL HISTORY: Right upper chest port placement. SOCIAL HISTORY: The patient does not use tobacco, alcohol or illicit drugs. FAMILY HISTORY: Negative for hematologic or oncologic disease. MEDICATIONS ON ADMISSION: Per medication reconciliation. ALLERGIES: Allergies are to Lodine. REVIEW OF SYSTEMS: A 14 point review of systems was obtained and is negative, except for mentioned in HPI. PHYSICAL EXAM: General: Rusty Cohen is a pleasant 58-year-old female, lying supine in bed in no immediate distress. Vital Signs: Temperature 98.4 degrees, blood pressure 124/47, heart rate 94, respirations 21, O2 saturation is 100% on room air. HEENT: Normocephalic, atraumatic. Mucous membranes are pale and moist. Sclerae is anicteric. Extraocular movements intact. Neck: Supple. Lungs: Clear to auscultation bilaterally. Chest expansion is equal bilaterally. CV: S1, S2 is heard without murmur, rub or gallop. Abdomen: Slightly distended and tender to palpation in the pelvic region. Bowel sounds are positive in all quadrants. No rebound or guarding is noted. Extremities: Without clubbing or cyanosis. The patient does have 1+ bilateral lower extremity edema. Dermatologic: No rashes, bruises or lesions. Neurologic: The patient is awake, alert, and oriented x3, and has no focal deficit. LABORATORY DATA: White blood cell count 0.94, hemoglobin 7.3, hematocrit 21.8. Platelet count is 497. Sodium 144, potassium 4.0, chloride 112, CO2 16. BUN 53, creatinine 4.6 and glucose is 85. Calcium is 8.9, phosphorus 5.6, and magnesium 1.4. Iron saturation on 12/16 is 58% with a ferritin of 4421. Vitamin D is 12.5. ASSESSMENT AND PLAN: 1. Myelofibrosis/essential thrombocythemia. The patient has been maintained on Jakafi and Hydrea in the past, but both medications have been discontinued recently secondary to profound anemia. Today, hemoglobin has improved to 7.4, status post 3 units packed red blood cell transfusion. Platelet count is 506,000 at this time. We will continue to monitor counts closely. 2. Secondary hemochromatosis in patient requiring frequent transfusion of packed red blood cells. The patient is on Exjade and should continue as an inpatient. 3. Profound anemia secondary to #1. Hemoglobin is 7.3 at this time, status post 3 units packed red blood cells. We will forego additional transfusion at this time. 4. Acute renal failure secondary to nephrolithiasis. The patient is status post cystoscopy with bilateral retrograde ureteral stent placement. The patient reports that she is feeling much better at this time. Creatinine has improved today to 4.6. We will continue to monitor. 5. Cystic fibrosis known. 6. Diabetes mellitus type 2. Stable at this time. 7. Hypertension. Blood pressure is stable at this time. 8. Hyperlipidemia, known. 9. Gastroesophageal reflux disease. Stable without exacerbation. We will follow along with you and make further recommendations pending outcomes. The above reflects the history, exam, assessment and plan of Dr. Medina. Dictated by AMALIA Arora for Hortensia Medina MD cc: AMALIA Arora MD
[2018-12-17] MEDS: TYLENOL PO PRN (15:34)
--- NOTE | 2018-12-17 16:02 | PROGRESS NOTE ---
DATE: 12/17/2018 SUBJECTIVE: The patient is sitting at the edge of the bed. She states that she feels a lot better today. She has no complaints. No acute events noted overnight. OBJECTIVE: Vital Signs: Temperature 98.1 degrees, blood pressure 144/68, heart rate 95, respirations 19, O2 saturations 100% on room air. Urine output 2.3 L. General: This is a chronically ill-appearing elderly female sitting at the edge of the bed in no acute distress. Heart: S1, S2 normal. Regular rate and rhythm. Lungs: Clear to auscultation bilaterally. Abdomen: Positive bowel sounds. Soft, nontender, nondistended. Extremities: No edema, no cyanosis. Neurologic: The patient is alert and oriented x4. LABS: White blood cell count 0.9, hemoglobin 7.3, hematocrit 21, platelets 497,000, ANC 0.37. Sodium 144, potassium 4, chloride 112, CO2 16, BUN 53, creatinine 4.6, glucose 85, magnesium 1.4, phosphorus 5.6, albumin 3.2. ASSESSMENT AND PLAN: 1. Acute kidney injury secondary to obstructive uropathy. Improved. The patient had a cystoscopy with bilateral ureteral stent placement and removal of bladder stones yesterday. Continue with IV fluids. Further management as per the manager payer and neurologist. 2. Myelofibrosis. Continue on neutropenic precautions. The patient is on Granix. Management as per the oncologist. 3. Hypomagnesemia. We will replace the patient's magnesium. 4. Diabetes mellitus type 2. Stable. Continue with sliding scale insulin. 5. Folate deficiency. The patient has been started on folic acid replacement. cc: Delores Irene MD [facility]
[2018-12-18] MEDS: NS 1,000 ML IV SCH ×2 (01:59→09:18)
[2018-12-18 06:10] LABS: BASO# 0.02 X1000 (0.0-0.2); BASO% 2.2 % (0.0-0.8); HEMATOCRIT 20.6 % (37.0-47.0); HEMOGLOBIN 6.7 g/dL (12.0-16.0); IMM GRAN# 0.08 X1000 (0.0-0.04); IMM GRAN% 8.6 % (0.0-0.5); LYMPH# 0.34 X1000 (1.2-3.4); LYMPH% 36.6 % (20.5-51.1); MCH 27.7 PG (27-31); MCHC 32.5 g/dL (33-37); MCV 85.1 FL (81-99); MONO% 10.8 % (1.7-9.3); MPV 9.9 FL (7.4-10.4); NEUT% 41.8 % (42.2-75.2); PLT 442 X1000 (130-400); RBC 2.42 XMIL (4.2-5.4); RDW 16.3 % (11.5-14.5); WBC 0.93 X1000 (4.8-10.8)
[2018-12-18 06:11] LABS: NEUT# 0.39 X1000 (1.4-6.5)
[2018-12-18] MEDS: HUMALOG SUBQ SCH ×4 (06:25→21:34)
[2018-12-18 06:32] LABS: CALCIUM 8.6 mg/dL (8.8-10.2); CREATININE 2.6 mg/dL (0.5-0.9); PHOSPHORUS 4.2 mg/dL (2.7-4.5); POTASSIUM 3.5 mmol/L (3.5-5.1)
[2018-12-18] MEDS: FOLIC ACID PO SCH (09:18)
[2018-12-18] MEDS ORDERED: MAGNESIUM SULFATE 4 GM/S.W.I. 4 GM/100 ML IVPB IV ONE (09:53)
[2018-12-18] MEDS ORDERED: NS 500 ML IV ONE (10:12)
[2018-12-18] MEDS: GRANIX SUBQ SCH (10:14)
[2018-12-18] MEDS ORDERED: VITAMIN D PO SCH (11:45)
--- NOTE | 2018-12-18 12:44 | PROGRESS NOTE ---
DATE: 12/18/2018 SUBJECTIVE: The patient is sitting up in the chair. She states that she feels good today. No acute events noted overnight. OBJECTIVE: Vital Signs: Temperature 98.1 degrees, blood pressure 141/57, heart rate 94, respirations 18, O2 saturation 100% on room air. General: This is a chronically ill-appearing elderly female sitting in a chair in no acute distress. Heart: S1, S2 normal. Regular rate and rhythm. Lungs: Clear to auscultation bilaterally. No wheezing. No rales. No rhonchi. Abdomen: Positive bowel sounds. Soft, nontender, nondistended. Extremities: Trace pedal edema in the lower extremities. Neurologic: The patient is awake, alert, and oriented x4. LABS: White blood cell count 0.93, hemoglobin 6.7, hematocrit 20, platelets 442,000, sodium 142, potassium 3.5, chloride 112, CO2 16, BUN 39, creatinine 2.6, glucose 88, magnesium 1.4, phosphorus 4.2, calcium 8.6, albumin 3. ASSESSMENT AND PLAN: 1. Acute kidney injury secondary to obstructive uropathy. Improved. Will discontinue the patient's IV fluids and monitor her response. 2. Status post cystoscopy with bilateral ureteral stent placement and removal of bladder stones. Aware. 3. Myelofibrosis. The patient's hemoglobin is 6.7. We will transfuse 1 unit of packed red blood cells. Continue on neutropenic precautions. Continue on Granix. Further management as per the oncologist. 4. Hypomagnesemia. Will give the patient 4 g of magnesium sulfate IV. 5. Diabetes mellitus type 2. Stable. Continue on sliding scale insulin. 6. Folate deficiency. Continue with folic acid replacement. 7. Vitamin D deficiency. Will start the patient on vitamin D replacement. 8. We will consult with physical therapy. cc: Delores Irene MD
--- NOTE | 2018-12-18 14:21 | NEPHROLOGY PROGRESS NOTE ---
DATE: 12/18/2018 SUBJECTIVE: She is sitting up in a chair, eating pizza. No nausea, vomiting, or shortness of breath. Good urine output. OBJECTIVE: Vital Signs: Blood pressure 141/57, heart rate, respirations 18, afebrile. General: No acute distress. Skin: Warm and dry. Heart: Regular. No gallops. Lungs: Equal. No crackles. Abdomen: Soft, nontender. Bowel sounds present. Extremities: Trace edema. No clubbing or cyanosis. IMPRESSION: Acute kidney injury secondary to bilateral ureteral obstruction. BUN and creatinine are improving daily. Okay for discharge from my perspective. She does have a modest acidosis which is related to her obstruction and should resolve. cc: Saumel Gonzalez MD
[2018-12-18] MEDS ORDERED: NS 500 ML ONE (15:11)
[2018-12-18] MEDS: TYLENOL PO PRN (15:36)
[2018-12-19] MEDS: HUMALOG SUBQ SCH ×2 (06:27→14:07)
[2018-12-19 07:55] LABS: BASO# 0.03 X1000 (0.0-0.2); BASO% 2.4 % (0.0-0.8); EOS# 0.01 X1000 (0.0-0.7); EOS% 0.8 % (0.0-10.0); HEMATOCRIT 25.9 % (37.0-47.0); HEMOGLOBIN 8.7 g/dL (12.0-16.0); IMM GRAN# 0.08 X1000 (0.0-0.04); IMM GRAN% 6.3 % (0.0-0.5); LYMPH# 0.48 X1000 (1.2-3.4); LYMPH% 38.1 % (20.5-51.1); MCH 28.4 PG (27-31); MCHC 33.6 g/dL (33-37); MCV 84.6 FL (81-99); MONO# 0.11 X1000 (0.11-0.59); MONO% 8.7 % (1.7-9.3); MPV 10.1 FL (7.4-10.4); NEUT# 0.55 X1000 (1.4-6.5); NEUT% 43.7 % (42.2-75.2); PLT 511 X1000 (130-400); RBC 3.06 XMIL (4.2-5.4); WBC 1.26 X1000 (4.8-10.8)
[2018-12-19 08:09] LABS: CALCIUM 9.5 mg/dL (8.8-10.2); CREATININE 2.4 mg/dL (0.5-0.9); MAGNESIUM 1.9 mg/dL (1.5-2.7); POTASSIUM 3.9 mmol/L (3.5-5.1)
[2018-12-19] MEDS: FOLIC ACID PO SCH (10:11)
[2018-12-19] MEDS: GRANIX SUBQ SCH (10:11)
[2018-12-19 13:08] VITALS: BP 149/79
--- NOTE | 2018-12-19 16:19 | DISCHARGE SUMMARY ---
ADMISSION DATE: 12/15/2018 DISCHARGE DATE: FINAL DISCHARGE DIAGNOSES: 1. Acute kidney injury secondary to obstructive uropathy. 2. Myelofibrosis. 3. Diabetes mellitus type 2. 4. Folate deficiency. 5. Hypomagnesemia. 6. Vitamin D deficiency. 7. Hypertension. 8. Obesity. 9. Neutropenia. 10. Anemia of chronic disease. CONSULTATIONS: 1. Nephrology consultation with Dr. Gonzalez. 2. Urology consultation with Dr. Ocampo. 3. Oncology consultation with Dr. Medina. PROCEDURES: Cystoscopy with bilateral ureteral stent placement and removal of bladder stones performed on 12/16/2018. HOSPITAL COURSE: Ms. Ojeda is a 58-year-old female with history of mild fibrosis, diabetes mellitus type 2, hypertension, and obesity who was sent to the ER due to abnormal blood work. Upon arrival to the ER, the patient was noted to have a hemoglobin of 4.9 with a hematocrit of 16. Also her BUN was 69 with a creatinine of 8.8. The patient was admitted to the hospitalist service, and the power plant operators supervisor was consulted. Also, the patient was transfused with 3 units of packed red blood cells. The patient is transfusion dependent secondary to her myelofibrosis. She states that she is scheduled to undergo a bone marrow transplant in January of this year. Urine studies were obtained as well as a renal ultrasound. The patient was admitted and started on IV fluid hydration. The renal ultrasound revealed bilateral hydronephrosis with large left renal stones. A CT of the abdomen and pelvis was then ordered that revealed bilateral hydroureteronephrosis with numerous bilateral renal stones and obstructing UVJ stones. Urology was then consulted. The patient was then taken to the OR on 12/16/2018 at which time a cystoscopy was done, and the bladder stones were removed and bilateral ureteral stents were placed. The patient tolerated the procedure without any difficulty. Over the course of the hospitalization, the patient's BUN and creatinine improved. The patient continued to improve clinically. On the day of discharge, the patient was noted to have a BUN of 31 with a creatinine of 2.4. Also, the patient's Garcia catheter was removed, and she was able to void without any difficulty. The postvoid residual was noted to be 14 mL. DISCHARGE MEDICATIONS: 1. Folic acid 1 mg p.o. daily. 2. Januvia 25 mg p.o. daily. 3. Vitamin D2 50,000 units oral every 7 days. 4. Coreg 25 mg p.o. twice a day. 5. Prilosec 40 mg p.o. daily. 6. Singulair 10 mg p.o. daily. 7. Colace 100 mg p.o. twice a day. 8. Exjade 1500 mg oral at bedtime. 9. Ultram 50 mg oral 3 times a day p.r.n. for pain. 10. Aspirin 81 mg p.o. daily. DISCHARGE DIET: 1800 ADA diet. ACTIVITY: As tolerated. FOLLOWUP INSTRUCTIONS: 1. The patient will need to follow up with Dr. Ocampo as scheduled by his clinic. 2. The patient will also need to follow up with Dr. Gonzalez as scheduled by his clinic. 3. The patient will need to follow up with Dr. West in 1 to 2 weeks for repeat basic metabolic profile. cc: Delores Irene MD
[2018-12-19] MEDS ORDERED: COREG PO SCH (21:00)
[2018-12-19] MEDS ORDERED: COLACE PO SCH (21:00)
[2018-12-20] MEDS ORDERED: SINGULAIR PO SCH (09:00)
== END 2018-12-19 16:39 | disposition home or self-care (01) | DRG 660 ==
LOC: ED 10:11 → 3S 12:42 → 3N 12-18 14:47
PROVIDERS: ATTEND Internal Medicine
CPT/HCPCS: 36430; 71010; 71045; 74176; 74420; 76770; 80048; 80053; 80069; 81001; 82306; 82360; 82570; 82607; 82728; 82746; 82948; 83540; 83550; 83735; 84156; 84300; 85025; 85610; 85730; 86850; 86900; 86901; 86905; 86920; 86922; 87088; 87205; 88300; 94761; 97163; 99285; 99291; A9270; J0330; J0690; J1446; J1447; J1815; J2370; J3475; J7030; J7040; P9016; Q9966; Q9967; XXXXX

== ENCOUNTER 2019-01-26 10:53 | Inpatient (IN) ==
--- NOTE | 2019-01-26 14:42 | Diag Imaging Result Doc PS360 ---
EXAM: CT RENAL STONE SEARCH 01/26/2019 HISTORY: hx stones TECHNIQUE: This exam was performed using automated exposure control, adjustment of mA or kV according to patient size, and/or use of iterative reconstruction technique. COMMENT: There has been no appreciable change in the appearance of the included portions of the lungs since the previous study of 12/15/2018. There is a small left pleural effusion, which was not present previously. There is marked splenomegaly. The spleen exceed 16.1 cm in anterior posterior dimension. There are some calcifications present in the spleen which were present previously. There has been cholecystectomy. There is bilateral hydronephrosis and bilateral renal stents are present. There are a number of stone fragments layering dependently in both collecting systems primarily in the lower poles. This was also the case previously. There is a calcified nodule in the left ovary which was also present previously. There is ascites with fluid in the cul-de-sac. The urinary bladder is not distended. There is no evidence of bowel obstruction. The regional skeleton appears somewhat sclerotic. It is possible this is due to secondary hyperparathyroidism. The appearance was similar on the previous study. IMPRESSION: 1. Bilateral hydronephrosis and bilateral ureteral stents. 2. Marked splenomegaly. 3. Ascites. 4. New left pleural effusion. Electronically signed by Remy Martinez 01/26/2019 2:39 PM
[2019-01-26] MEDS ORDERED: TYLENOL PO ONE (15:08)
[2019-01-26] MEDS ORDERED: BENADRYL PO ONE (15:10)
[2019-01-26] MEDS: NS 500 ML IV SCH (15:42)
[2019-01-26] MEDS: HUMALOG SUBQ SCH ×2 (15:43→21:00)
--- NOTE | 2019-01-26 22:25 | HISTORY AND PHYSICAL ---
CHIEF COMPLAINT: Neutropenia, anemia. HISTORY OF PRESENT ILLNESS: This is a 58-year-old female with a history of myelofibrosis and essential thrombocytopenia, who presents as a direct admit from Dr. Paul's office after having a reported hemoglobin of 4.5 with a WBC of 0.5. Labs were drawn in Dr. Paul's office. The patient is being admitted for blood transfusion. PAST MEDICAL HISTORY: 1. Myelofibrosis, followed by Dr. Paul. 2. Chronic anemia related to myelofibrosis, requiring multiple blood transfusions. 3. Diabetes mellitus type 2. 4. Reported cystic fibrosis. 5. Hypertension. 6. Gastroesophageal reflux disease. 7. Hyperlipidemia. 8. Chronic bilateral hydronephrosis with right greater than left, with chronic indwelling bilateral ureteral double-J stents. PAST SURGICAL HISTORY: Bone marrow biopsy, right upper chest port placement, bilateral double-J stents, status post bladder stone removal. SOCIAL HISTORY: She denies alcohol, tobacco or illicit drug use. ALLERGIES: Lodine and hydroxyurea, with unknown reactions. HOME MEDICATIONS: A list will be obtained by the nursing staff, and once verified we will review and restart as is appropriate. REVIEW OF SYSTEMS: Discussed with the patient, with pertinent positives stated in the HPI. She denied any syncope, dizziness, chest pain, palpitations, any fevers or chills, any shortness of breath, productive cough, nausea, vomiting, diarrhea, constipation or black or bloody vomitus or stools. PHYSICAL EXAMINATION: GENERAL: This is a 58-year-old female who is sitting up on the stretcher in the emergency room in no distress. VITAL SIGNS: Blood pressure is 139/60 with heart rate of 88, respirations are 18, temperature is 98 degrees with room air saturations 100% CARDIOVASCULAR: Regular rate and rhythm. S1 and S2 are appreciated. PULMONARY: Breath sounds are clear with no increased work of breathing noted. GASTROINTESTINAL: Abdomen is soft, nontender, nondistended with bowel sounds in all 4 quadrants. NEUROLOGIC: She is alert and oriented x3. SKIN: Warm and dry. ASSESSMENT AND PLAN: 1. Myelofibrosis with severe anemia. We will transfuse 3 units of packed cells. Recheck hemoglobin and hematocrit after the third unit. 2. Chronic kidney disease. The patient is followed by Dr. Gonzalez. 3. Diabetes mellitus type 2. Pattern blood glucose with sliding scale insulin. 4. Hypertension. We will continue her home medications when verified. 5. Gastroesophageal reflux disease. 6. Reported cystic fibrosis, for which she is followed at [facility]. 7. Neutropenia. She will be placed on neutropenic precautions. Further treatments pending hospital course. cc: David Arvizu MD
[2019-01-27] MEDS: HUMALOG SUBQ SCH ×4 (06:22→20:03)
[2019-01-27 07:56] LABS: ALB/GLOB RATIO 0.6; ALBUMIN 2.6 g/dL (3.5-5.0); CALCIUM 8.1 mg/dL (8.8-10.2); CREATININE 5.7 mg/dL (0.5-0.9); POTASSIUM 4.7 mmol/L (3.5-5.1); TOTAL BILIRUBIN 0.74 mg/dL (0.20-1.00); TOTAL PROTEIN 6.6 g/dL (6.3-8.3)
[2019-01-27 09:10] LABS: EOS# 0.01 X1000 (0.0-0.7); EOS% 2.1 % (0.0-10.0); HEMATOCRIT 22.9 % (37.0-47.0); HEMOGLOBIN 7.5 g/dL (12.0-16.0); LYMPH# 0.22 X1000 (1.2-3.4); LYMPH% 45.8 % (20.5-51.1); MCH 28.5 PG (27-31); MCHC 32.8 g/dL (33-37); MCV 87.1 FL (81-99); MONO# 0.03 X1000 (0.11-0.59); MONO% 6.3 % (1.7-9.3); MPV 10.5 FL (7.4-10.4); NEUT% 45.8 % (42.2-75.2); PLT 228 X1000 (130-400); RBC 2.63 XMIL (4.2-5.4); RDW 14.5 % (11.5-14.5); WBC 0.48 X1000 (4.8-10.8)
[2019-01-27 09:12] LABS: NEUT# 0.22 X1000 (1.4-6.5)
[2019-01-27 09:16] LABS: LYMPHS 50 % (21-51); SEGS 40 % (42-75)
[2019-01-27] MEDS ORDERED: NS 500 ML IV ONE (09:33)
[2019-01-27] MEDS: ZOFRAN PO PRN (13:17)
[2019-01-27] MEDS ORDERED: TYLENOL PO ONE (13:51)
[2019-01-27] MEDS ORDERED: BENADRYL IV ONE (13:52)
[2019-01-27] MEDS: NORCO-5 PO PRN (15:00)
[2019-01-27] MEDS: PRILOSEC PO SCH (15:01)
[2019-01-27 17:11] LABS: CALCIUM 8.1 mg/dL (8.8-10.2); CREATININE 6.1 mg/dL (0.5-0.9); PHOSPHORUS 5.7 mg/dL (2.7-4.5); POTASSIUM 4.8 mmol/L (3.5-5.1)
--- NOTE | 2019-01-27 19:05 | PROGRESS NOTE ---
DATE: 01/27/2019 SUBJECTIVE: This patient has generalized weakness and also she is complaining of pain with urination. I requested a urine culture and urinalysis, and also Physical Therapy evaluation. She has been transfused with 3 units of blood and I have requested a new one as recommended by Hematology/Oncology Department. She was supposed to go today to [place] to be evaluated, but as per the patient, she cannot go today. I discussed the case with Dr. Paul, who suggested 1 unit of PRBC, consult Dr. Gonzalez, Nephrology Department, and continue with the same management. OBJECTIVE: Vital Signs: Temperature 98.3 degrees, pulse 96, respiratory rate 28, blood pressure 144/64, oxygen saturation 100% on room air. HEENT: Head normocephalic, no trauma. PERRLA. Neck: Supple. No JVD. No masses. Central trachea. Chest: Clear to auscultation. No wheezing. No rales. Abdomen: Soft. Some tenderness to palpation at the level of the epigastric area. Extremities: No edema. No clubbing. No cyanosis. Neurological: She is alert. She is oriented x3. She does have generalized weakness. LABORATORY: WBC 0.48, hemoglobin 7.5, hematocrit 22.9, neutrophil count 0.22. Sodium 137, potassium 4.7, chloride 109, bicarbonate 12, BUN 134, creatinine 5.7, glucose 113, calcium 8.1. ASSESSMENT AND PLAN: 1. Myelofibrosis with severe anemia, status post 3 packed red blood cells. Hematology/Oncology Department recommended to transfuse this patient one more time. It has been requested. We will monitor this patient closely. 2. Chronic kidney disease. It looks like she has an acute on chronic kidney disease. I have requested an evaluation by Nephrology Department. This has been requested by Hematology/Oncology Department as well. 3. Type 2 diabetes. Continue patterning blood sugar and sliding scale insulin. 4. Hypertension. We will continue with home medications. 5. Gastroesophageal reflux disease. Continue with proton pump inhibitors. 6. Reported cystic fibrosis, for which she is followed or will be followed at [facility]. 7. Neutropenia. Continue with neutropenic precautions. 8. Dysuria. I asked for a urine culture and urinalysis. cc: David Arvizu MD
[2019-01-27] MEDS: COLACE PO SCH (20:10)
--- NOTE | 2019-01-27 23:26 | NEPHROLOGY CONSULTATION ---
DATE: 01/26/2019 REASON FOR ADMISSION: Neutropenia with anemia. REASON FOR CONSULT: Acute kidney injury on CKD. REQUESTING PHYSICIAN: Dr. Arvizu. HISTORY OF PRESENT ILLNESS: Ms Ojeda is a 58-year-old female who has a history of myelofibrosis and essential thrombocytopenia. She is followed by Dr. Paul's office on a weekly basis. She had been to his office yesterday and was found to have a hemoglobin of 4.5. They sent her to [facility], she was admitted for blood transfusions. In the emergency room, it was also found that her creatinine this morning was 5.7 with a BUN of 134. Hemoglobin now up to 7.5 after 3 units of packed red blood cells. The patient has a platelet count today of 228, white count 0.48. She states that she has chronic ongoing chest pain. No changes in her work of breathing. No changes in extremity swelling. Positive for weakness. No complaints of fever or chills. Chronic nausea, decreased appetite. No emesis or diarrhea. The patient has received 3 units of packed red blood cells during her hospital stay already. She is currently receiving blood again today. During her previous hospitalization, she was found to have bilateral hydronephrosis with double-J stents placed per Dr. Aguirre. She has had a CT yesterday on admission indicating that she continues with bilateral hydronephrosis. She has decreased urinary output. PAST MEDICAL HISTORY: Myelofibrosis, followed by Dr. Paul, chronic anemia related to myelofibrosis requiring multiple blood transfusions. She has chronic kidney disease stage 3B/4. We have attempted to contact the patient to come in for repeat labs and follow up on a urinary tract infection in our office over the past week for follow-up urinary tract infection. She has diabetes mellitus type 2, reported cystic fibrosis, hypertension, gastroesophageal reflux disease, hyperlipidemia, chronic bilateral hydronephrosis, right greater than left, with chronic indwelling bilateral ureteral J stents. PAST SURGICAL HISTORY: Bone marrow biopsy, right upper chest port placed [address] Batres, status post bladder stone removal. SOCIAL HISTORY: She lives at home with her children. Her daughter is at her bedside attentive to her care. Denies tobacco, alcohol, or illicit drug use. FAMILY HISTORY: Denies kidney disease. ALLERGIES: Listed as Lodine, causing abdominal pain; hydroxyurea, unknown reaction. REVIEW OF SYSTEMS: Times 10 with pertinent positives listed above in the HPI. HOME MEDICATIONS: Have been previously listed as carvedilol, Prilosec, montelukast, docusate, Exjade, tramadol, Hyzaar, and aspirin. CURRENT VITAL SIGNS: Temperature 98.2 degrees, blood pressure 130/56, heart rate 89, respirations 18. She is on room air. Last recorded saturation 100%. She has had 1300 mL listed in. She has had 0 out recorded so far. LABORATORY DATA: Sodium 137, potassium 4.7, chloride 109, CO2 of 12, BUN 134, creatinine 5.7. Glucose 113. Her anion gap is 16, calcium 8.1, albumin 2.6. White count 0.48, hemoglobin 7.5, hematocrit 22.9 with a platelet count of 228,000. The patient had a CT Stone Search indicating continued bilateral hydronephrosis, ascites, left pleural effusions, and marked splenomegaly. PHYSICAL EXAMINATION: General: This is a 58-year-old female. She is in moderate distress secondary to nausea and just general weakness. HEENT: Normocephalic, atraumatic. Conjunctivae is pale. Mucous membranes are dry. Neck: Supple. Unable to determine JVD in patient's position. Cardiovascular: Regular rate and rhythm. Soft systolic murmur is present. Lungs: Diminished breath sounds with poor inspiratory effort. Clear anteriorly. Remains on room air. Abdomen: Nontender. Positive bowel sounds. Genitourinary: Not inspected. Patient has documented 3 voids, not measured. Integumentary: Port to the right chest wall. Neurological: Alert and oriented x3. ASSESSMENT AND PLAN: 1. Acute kidney injury on chronic kidney disease stage 3B/4. Patient's BUN and creatinine are elevated, this may be multifactorial secondary to volume depletion, previous hemoglobin of 4.5. CT indicates continued bilateral hydronephrosis, decreased urinary output. She is currently receiving her 5th unit of packed red blood cells during this period of time. We will monitor her repeat labs later this evening. 2. Myelofibrosis with severe anemia. Patient was transfused 3 units of packed red blood cells yesterday. Hemoglobin remained low at 7.5. She has further packed cells ordered today. Followed by Dr. Paul and the primary care. 3. Electrolytes and acid-base balance. Moderate metabolic acidosis attributable to her renal disease. Observe. rg 4. Anemia, as mentioned above. 5. Hypertension. The patient's home medications have been resumed. Blood pressure stable. I would like to thank you for allowing us to follow with this patient. Dictated by AMALIA Troy for Samuel Gonzalez MD Face to face encounter, data reviewed, discussed with Violeta Webster on 01/28/19. I agree with the above assessment and plan of care. rg cc: AMALIA Troy MD [facility]
[2019-01-28 03:06] LABS: URINE SOURCE CLEAN CATCH
[2019-01-28 03:12] LABS: BILIRUBIN URINE NEGATIVE (NEGATIVE); BLOOD URINE MODERATE (NEGATIVE); COLOR YELLOW; GLUCOSE URINE NEGATIVE (NEGATIVE); KETONE URINE NEGATIVE (NEGATIVE); LEUKOCYTES URINE LARGE (NEGATIVE); NITRITE URINE NEGATIVE (NEGATIVE); PROTEIN URINE 100 mg/dL (NEGATIVE); SP GRAVITY URINE 1.013; TURBIDITY URINE HAZY (CLEAR); UROBILINOGEN URINE NORMAL (NORMAL)
[2019-01-28 03:21] LABS: UR EPITHELIAL CELLS <10 /HPF (<10); URINE BACTERIA NEGATIVE /HPF; URINE RBC <10 /HPF (<10); URINE WBC TNTC /HPF (<10)
[2019-01-28 03:49] LABS: URINE CASTS NONE SEEN; URINE CRYSTALS NONE SEEN; URINE SMALL ROUND CELLS NONE SEEN; URINE YEAST PRESENT
--- NOTE | 2019-01-28 06:17 | CONSULTATION ---
DATE OF CONSULTATION: 01/27/2019 ATTENDING AND REFERRING PHYSICIAN: Rachel. HISTORY OF PRESENT ILLNESS: This 58-year-old female has a history of myelofibrosis that causes severe anemia. This is one of her many admissions for blood transfusions. At her last admission in November of 2018, a renal ultrasound revealed a new onset hydronephrosis. A CT stone search confirmed bilateral hydronephrosis with bilateral renal stones and distal ureteral stones. The patient's CT stone search in June of 2018 had no hydronephrosis, and a 1 mm stone in the left kidney. The patient underwent cystoscopic exam with washing out of the ureteral stones and bladder stones, and placement of a double-J stent on either side. Her creatinine at that admission was 8.1, and at discharge it had gone back down to her baseline of 2.4. She again developed severe anemia and was admitted for blood transfusion where a creatinine is noted to be 6.1. A CT stone search again noted bilateral hydronephrosis with bilateral renal lithiasis that is in the lower poles with the double-J stents in good position connecting the kidney to the bladder. The patient received blood transfusions today and states she feels a lot better. PAST MEDICAL HISTORY: Myelofibrosis, chronic anemia, diabetes, hypertension, elevated cholesterol, gastroesophageal reflux disease, bilateral renal lithiasis, and chronic renal insufficiency. CURRENT MEDICATIONS: Documented on the chart. PAST SURGICAL HISTORY: Multiple bone marrow biopsies, Port-A-Cath placement in the right upper chest, and placement of bilateral double-J stents. SOCIAL HISTORY: No tobacco or alcohol use. REVIEW OF SYSTEMS: She has had no fevers. No recent pulmonary or bowel problems. She denies voiding problems, and feels like she empties without problems. She has had no hematuria. She states that she does occasionally have spasms at the end of voiding. PHYSICAL EXAMINATION: General: An obese, age apparent, normally developed black female oriented in all ways and cooperative. HEENT: Normal for age. Lungs: Clear. Cardiovascular: Regular rate and rhythm. Abdomen: Soft and nontender. No hepatosplenomegaly or masses. Normal bowel sounds. : The bladder is not palpable. Neurologic: No focal deficits. Extremities: No clubbing, cyanosis, or edema. LABORATORY EVALUATION: Serum sodium of 132, potassium 4.8, chloride 104, bicarb is 12, BUN 127, and creatinine 6.1. Calcium level was low at 8.1. Phosphorus level was high at 5.7. CBC has a white count of 0.48. Hemoglobin of 7.5 and hematocrit 22.[address] scan is as noted in the HPI. IMPRESSION: 1. Severe anemia due to myelofibrosis. 2. Bilateral hydronephrosis with indwelling bilateral double-J stents in good position. 3. Hydronephrosis not worse on this CT scan. 4. Bilateral lower pole nonobstructing renal stones. 5. Renal insufficiency that is getting worse. RECOMMENDATIONS: 1. Check postvoid residuals. 2. Since the hydronephrosis is not worse and the stents appear in good position, nothing to add from a urological point of view at this time. 3. We will check PTH level to ensure primary hyperparathyroidism has nothing to do with the rapid formation of the kidney stones. 4. Thank you for this consultation. cc: Damon Ocampo MD
[2019-01-28] MEDS: HUMALOG SUBQ SCH ×4 (06:47→20:38)
[2019-01-28] MEDS: NORCO-5 PO PRN (08:09)
[2019-01-28] MEDS: FOLIC ACID PO SCH (08:10)
[2019-01-28] MEDS: SINGULAIR PO SCH (08:13)
[2019-01-28] MEDS: PRILOSEC PO SCH (08:13)
[2019-01-28] MEDS: JANUVIA PO SCH (08:13)
[2019-01-28] MEDS: COLACE PO SCH ×2 (08:13→20:39)
[2019-01-28 08:16] LABS: EOS# 0.01 X1000 (0.0-0.7); EOS% 2.7 % (0.0-10.0); HEMOGLOBIN 7.9 g/dL (12.0-16.0); LYMPH# 0.18 X1000 (1.2-3.4); LYMPH% 48.6 % (20.5-51.1); MCH 28.8 PG (27-31); MCHC 32.9 g/dL (33-37); MCV 87.6 FL (81-99); MONO# 0.02 X1000 (0.11-0.59); MONO% 5.4 % (1.7-9.3); MPV 10.4 FL (7.4-10.4); NEUT# 0.16 X1000 (1.4-6.5); NEUT% 43.3 % (42.2-75.2); PLT 173 X1000 (130-400); RBC 2.74 XMIL (4.2-5.4); RDW 14.8 % (11.5-14.5); WBC 0.37 X1000 (4.8-10.8)
[2019-01-28 08:30] LABS: ANISOCYTOSIS 1+; EOS 3 % (1-10); LYMPHS 48 % (21-51); MONO 5 % (1-9); SEGS 44 % (42-75)
[2019-01-28 08:31] LABS: LARGE PLATELETS 2+; MICROCYTOSIS 1+
[2019-01-28 08:48] LABS: ALBUMIN 2.7 g/dL (3.5-5.0); CALCIUM 8.6 mg/dL (8.8-10.2); CREATININE 6.4 mg/dL (0.5-0.9); PHOSPHORUS 5.7 mg/dL (2.7-4.5); POTASSIUM 4.9 mmol/L (3.5-5.1)
--- NOTE | 2019-01-28 12:35 | PROGRESS NOTE ---
DATE: 01/28/2019 SUBJECTIVE: This patient is lying comfortably in bed. She received 1 more unit of PRBC yesterday and her hemoglobin improved from 7.5 to 7.9. Creatinine increased compared with yesterday from 5.7 to 6.1 and today is 6.4. I will wait for Nephrology Department evaluation and recommendations. She seems to be tolerating p.o. OBJECTIVE: Vital Signs: Temperature 98.6 degrees, pulse 87, respiratory rate 19, blood pressure 104/62, oxygen saturation 100% on room air. HEENT: Head normocephalic. No trauma. PERRLA. Neck: Supple. No JVD. No masses. Central trachea. Chest: Clear to auscultation. No wheezing. Abdomen: Soft. Tenderness to palpation at the level of the epigastric and lower abdomen. Extremities: No edema. No clubbing. No cyanosis. Neurological: She is alert. She is oriented x3. She does have generalized weakness. LABORATORY: WBC 0.37, hemoglobin 7.9, hematocrit 24, platelets 173,000. Sodium 136, potassium 4.9, chloride 109, bicarbonate 13, BUN 128, creatinine 6.4, glucose 94, calcium 8.6, phosphorus 5.7, albumin 2.7. ASSESSMENT AND PLAN: 1. Myelofibrosis with severe anemia, status post 4 packed red blood cells. Hematology Oncology Department evaluated this patient. We will follow their recommendations. Hemoglobin seems to be more stable at 7.9. 2. Chronic kidney disease. It looks like her creatinine is going up. Nephrology Department already evaluated this patient and they requested an evaluation by Urology Department, but it looks like this patient's hydronephrosis has been stable and the double-J stent that has been placed before is working fine. 3. Type 2 diabetes. Continue pattern of blood sugar and sliding scale insulin. 4. Hypertension. Continue home medication. 5. Gastroesophageal reflux disease. Continue PPI. 6. Reported cystic fibrosis, aware. 7. Neutropenia. Continue with neutropenic precautions. 8. Dysuria. I asked for a urinalysis which has a lot of white blood cells, no evidence of nitrates or bacteria. Urine cultures negative so far, but since this patient is having symptoms I will give her a dose of ceftriaxone and I will monitor. cc: David Arvizu MD
[2019-01-28] MEDS ORDERED: ROCEPHIN 1 GM in NS 50 ML IV ONE (15:17)
[2019-01-28] MEDS: ROCEPHIN 1 GM in NS 50 ML IV ONE ×2 (15:31→17:33)
--- NOTE | 2019-01-28 19:08 | NEPHROLOGY PROGRESS NOTE ---
DATE: 01/28/2019 SUBJECTIVE: She remains very weak. Shortness of breath with any exertion. No chest pain. OBJECTIVE: Vital Signs: Blood pressure 125/50, heart rate 84, respirations 16, afebrile. General: Chronically ill, lying in bed. No acute distress. Skin: Warm and dry. Conjunctivae are pale. Pupils are equal. Oropharynx is dry. Neck: Neck veins are distended. Heart: Regular with a gallop. Lungs: Have equal breath sounds, shallow, no crackles. Abdomen: Soft, nontender. Bowel sounds present. Extremities: With trace edema. No clubbing or cyanosis. IMPRESSION: Renal failure. Her baseline creatinine was 2.5 as recently as late November. She had an episode of acute kidney injury at that time. And creatinine was as high as 8.8. She had significant obstruction. She has been evaluated by Dr. Ocampo who does not feel that any urologic intervention would be helpful. We will observe her response to transfusion. She was counseled that if her kidney function does not improve, she may have to face decisions regarding dialysis initiation. She understands. cc: Samuel Gonzalez MD
[2019-01-29] MEDS: HUMALOG SUBQ SCH ×4 (06:04→20:30)
[2019-01-29 07:29] LABS: HEMATOCRIT 22.3 % (37.0-47.0); HEMOGLOBIN 7.3 g/dL (12.0-16.0); LYMPH# 0.16 X1000 (1.2-3.4); LYMPH% 61.5 % (20.5-51.1); MCH 28.9 PG (27-31); MCHC 32.7 g/dL (33-37); MCV 88.1 FL (81-99); MONO# 0.01 X1000 (0.11-0.59); MONO% 3.8 % (1.7-9.3); MPV 10.7 FL (7.4-10.4); NEUT% 34.7 % (42.2-75.2); PLT 152 X1000 (130-400); RBC 2.53 XMIL (4.2-5.4); RDW 14.9 % (11.5-14.5); WBC 0.26 X1000 (4.8-10.8)
[2019-01-29 07:30] LABS: NEUT# 0.09 X1000 (1.4-6.5)
[2019-01-29] MEDS ORDERED: XYLOCAINE-MPF 2% ONE (07:30)
[2019-01-29] MEDS ORDERED: DIPRIVAN 1% ONE (07:30)
[2019-01-29] MEDS ORDERED: DECADRON ONE (07:30)
[2019-01-29] MEDS ORDERED: ZOFRAN ONE (07:30)
[2019-01-29] MEDS: ZOFRAN PO PRN (07:38)
[2019-01-29 07:49] LABS: ALBUMIN 2.4 g/dL (3.5-5.0); CALCIUM 8.4 mg/dL (8.8-10.2); CREATININE 5.7 mg/dL (0.5-0.9); PHOSPHORUS 5.5 mg/dL (2.7-4.5); POTASSIUM 4.9 mmol/L (3.5-5.1)
[2019-01-29] MEDS ORDERED: KEFZOL IV ONE (08:00)
[2019-01-29] MEDS ORDERED: KEFZOL 500 MG in NS 50 ML IV ONE (08:00)
[2019-01-29] MEDS ORDERED: FENTANYL ONE (08:28)
[2019-01-29] MEDS ORDERED: VITAMIN D PO SCH (09:00)
[2019-01-29] MEDS ORDERED: ZYLOPRIM PO ONE (10:01)
[2019-01-29] MEDS: JANUVIA PO SCH (10:28)
[2019-01-29] MEDS: FOLIC ACID PO SCH (10:28)
[2019-01-29] MEDS: ZYLOPRIM PO SCH (10:29)
[2019-01-29] MEDS: SINGULAIR PO SCH (10:29)
[2019-01-29] MEDS: PRILOSEC PO SCH (10:29)
[2019-01-29] MEDS: COLACE PO SCH ×2 (10:29→20:30)
[2019-01-29] MEDS: SODIUM BICARBONATE 8.4% 150 MEQ in D5W 1,000 ML IV SCH (10:53)
--- NOTE | 2019-01-29 14:43 | PROGRESS NOTE ---
DATE: 01/29/2019 SUBJECTIVE: This patient just came back from surgery. The double-J stents were removed and she had new ones bilaterally. Some kidney stones were removed as well and some recommendations were placed by the urologist. She seems to be feeling a little bit better. We will continue with the same management and following the recommendations also of Hematology/Oncology Department. OBJECTIVE: Vital Signs: Temperature 97.3 degrees, pulse 100, respiratory rate 20, blood pressure 120/54, oxygen saturation 100% on nasal cannula. HEENT: Head normocephalic, no trauma. PERRLA. Neck: Supple. No JVD. No masses. Central trachea. Chest: Clear to auscultation. Abdomen: Soft, no tenderness to palpation, some discomfort at the level of the lower abdomen. Extremities: No edema no clubbing no cyanosis. Neurological: This patient is alert. She is following commands. She is oriented x3. LABORATORY: WBC 0.26, hemoglobin 7.3, hematocrit 22.3, platelets 152,000, neutrophil count 0.09. Sodium 137, potassium 4.9, chloride 107, bicarbonate 12, BUN 137, creatinine 5.7, glucose 97, calcium 8.4, phosphorus 5.5, albumin 2.4. ASSESSMENT AND PLAN: 1. Myelofibrosis with severe anemia, status post multiple packed red blood cells. Hematology/ oncology Department following this patient closely. We will continue following their recommendations. Hemoglobin seems to be above 7, actually 7.3 down from 7.9. We will we will just monitor for now. 2. Chronic kidney disease. It looks like she has an acute on chronic kidney disease. Nephrology department on board. She just had a double-J stent removed bilaterally and a new double stain double-J stent has been placed bilaterally as well and some kidney stones were removed. Some recommendations were given by urology department. We will continue to follow. 3. Type 2 diabetes. Continue pattern blood sugar and sliding scale insulin. 4. Hypertension, continue home medication. 5. Gastroesophageal reflux disease. Continue proton pump inhibitors. 6. Neutropenia. Continue with neutropenic precautions, hematology/ oncology on board. 7. Dysuria, so far the urine culture is negative. cc: David Arvizu MD
--- NOTE | 2019-01-29 16:24 | OPERATIVE NOTE ---
PROCEDURE DATE: 01/29/2019 SURGEON: Dr. Ocampo PREOPERATIVE DIAGNOSIS: Severe myelofibrosis with severe anemia, bilateral hydroureteronephrosis, bilateral indwelling double-J stents and history of uric acid stones. POSTOPERATIVE DIAGNOSIS: Severe myelofibrosis with severe anemia, bilateral hydroureteronephrosis, bilateral indwelling double-J stents and history of uric acid stones. PROCEDURE PERFORMED: Cystoscopic exam, remove left double-J stent, blind basketing of large left distal ureteral stones, place left double-J stent, remove right double-J stent, right ureteroscopy, basket extraction of a large number of right ureteral stones, place right double-J stent. ANESTHESIA: General via laryngeal mask. FINDINGS: Cystoscopic exam: Urethra--greater than 21 Vincentian, without stricture. Bladder--grade 1 trabeculations. No diverticula or papillary lesions. The double-J stents are in place bilaterally. They are stone encrusted. There are stones bulging out of the left ureteral orifice beside the double-J stent. exam is normal external female. No adnexal masses. Normal vaginal mucosa for age. Palpably normal bladder. INDICATION FOR PROCEDURE: This 58-year-old female with severe myelofibrosis and resulting anemia has increasing renal insufficiency. She has known hydronephrosis, and double-J stents were placed two months ago. The patient's renal function at last discharge was 2.4, and recently it was 6.1. A CT scan did revealed both stents in good position. Since she has a history of uric acid stones, we will exchange the double-J stents. DESCRIPTION OF PROCEDURE: After informed consent was obtained from the patient and her receiving IV antibiotics, she was taken the main OR cystoscopy room, placed in the supine position. General anesthesia via laryngeal mask was achieved. She was then placed in the low lithotomy position and prepped and draped in the usual sterile fashion for cystoscopic exam. A 21-Vincentian cystoscope was passed in the patient's urethra and into the bladder with findings noted above. A 0.035 ZIPwire was passed through the cystoscope, engaged the left ureteral orifice and could not be advanced up into the kidney or even into the ureter secondary to obstructing stones. The wire was removed. The grasping forceps were placed, and the double-J stent was pulled out to the urethral meatus. A 0.035 ZIPwire was attempted to be passed through the double-J stent, but it was blocked. The cystoscope was returned to the bladder beside the double-J stent, and a 0.035 ZIPwire was able to be passed beside the double-J stent and up into the kidney. The grasping forceps were placed, and the old double-J stent was completely removed. The graspers were placed, and several stones that were bulging out of the left ureteral orifice were directly removed. A 4 wire Nitinol basket was placed, and 3 more large stones were removed from the ureter. An 8-Vincentian, 22 cm double-J stent was passed over the ZIPwire and up into the kidney. The renal end was verified by fluoroscopic exam, bladder end directly visualized. Stent removal string was removed. On the right side, there was stone debris beside the double-J stent but no large stones seen coming out. A 0.035 ZIPwire was passed through the cystoscope and up beside the indwelling double-J stent and coiled in the kidney. The grasping forceps were placed, and the stent was very difficult to remove, but it was removed it in its entirety. A 7-Vincentian Storz semi-rigid ureteroscope was then advanced through the patient's urethra and easily up into the ureter where a large number of stones were visualized. A 4 wire Nitinol basket was placed, and multiple passes were made to remove stone fragments. At completion, the mid to distal ureter was completely free of stones. Looking up at the proximal ureter, no further large stones were visualized. The ureteroscope was removed. An 8- Vincentian, 22 cm double-J stent was passed over the ZIPwire and up into the kidney. The renal end was verified by fluoroscopic exam, bladder end directly visualized. Stent removal string was removed. A Micheal syringe was used to irrigate the bladder to remove stone fragments. The grasping forceps were placed to remove the larger stone. These were sent to Pathology for analysis. The bladder was left distended. An 18-Vincentian Garcia catheter was passed in the patient's urethra and into the bladder. This will be kept in place to monitor postobstructive diuresis. The patient will be started on allopurinol per Dr. Gonzalez (Nephrology), and her urine will need to be alkalinized in an attempt to dissolve the stones. She will have her double-J stents exchanged in about 6 weeks. She tolerated this procedure well and was taken to recovery room in good condition. cc: Damon Ocampo MD
--- NOTE | 2019-01-29 21:40 | NEPHROLOGY PROGRESS NOTE ---
DATE: 01/29/2019 SUBJECTIVE: The patient was taken to the operating room today by Dr. Ocampo and underwent stent exchange. She had apparently a large amount of stones and debris. She is not having any other new complaints currently. She has been able to eat some. No shortness of breath, nausea or vomiting. OBJECTIVE: Vital Signs: Blood pressure 126/59, heart rate 89, respirations 15, afebrile. General: She is chronically ill appearing in no acute distress. Neck: Neck veins are distended. Trachea is midline. Heart: Regular. No gallops. Lungs: Equal. No crackles. Abdomen: Soft, nontender. Extremities: Have no edema, clubbing or cyanosis. IMPRESSION: 1. Acute kidney injury overlying chronic kidney disease secondary to obstruction. Stent exchange. Observe her response. 2. Metabolic acidosis. We will begin sodium bicarbonate 3 amps in 1 L D5 water. 75 mL an hour. 3. Hyperuricemia. Begin allopurinol. We will discuss this with hematology on Thursday. cc: Samuel Gonzalez MD
[2019-01-30] MEDS: SODIUM BICARBONATE 8.4% 150 MEQ in D5W 1,000 ML IV SCH ×2 (01:14→17:30)
[2019-01-30] MEDS: HUMALOG SUBQ SCH ×4 (06:08→21:43)
[2019-01-30 07:03] LABS: HEMATOCRIT 23.9 % (37.0-47.0); HEMOGLOBIN 7.8 g/dL (12.0-16.0); LYMPH# 0.06 X1000 (1.2-3.4); LYMPH% 35.3 % (20.5-51.1); MCH 28.3 PG (27-31); MCHC 32.6 g/dL (33-37); MCV 86.6 FL (81-99); MONO# 0.02 X1000 (0.11-0.59); MONO% 11.8 % (1.7-9.3); MPV 10.8 FL (7.4-10.4); NEUT% 52.9 % (42.2-75.2); PLT 124 X1000 (130-400); RBC 2.76 XMIL (4.2-5.4); RDW 14.6 % (11.5-14.5); WBC < 0.20 X1000 (4.8-10.8)
[2019-01-30 07:06] LABS: NEUT# 0.09 X1000 (1.4-6.5)
[2019-01-30 07:32] LABS: ALBUMIN 2.8 g/dL (3.5-5.0); CALCIUM 8.7 mg/dL (8.8-10.2); CREATININE 5.4 mg/dL (0.5-0.9); PHOSPHORUS 5.1 mg/dL (2.7-4.5); POTASSIUM 4.6 mmol/L (3.5-5.1)
[2019-01-30] MEDS: ZYLOPRIM PO SCH (09:26)
[2019-01-30] MEDS: PRILOSEC PO SCH (09:26)
[2019-01-30] MEDS: COLACE PO SCH ×2 (09:26→21:42)
[2019-01-30] MEDS: JANUVIA PO SCH (09:26)
[2019-01-30] MEDS: SINGULAIR PO SCH (09:26)
[2019-01-30] MEDS: FOLIC ACID PO SCH (09:26)
--- NOTE | 2019-01-30 10:16 | PROGRESS NOTE ---
DATE: 01/30/2019 SUBJECTIVE: This patient is lying comfortably in bed. She is tolerating p.o. She had a liquid bowel movement. She went for surgery yesterday, she is still neutropenic, anemic. BUN and creatinine still elevated but better compared with yesterday. OBJECTIVE: Vital Signs: Temperature 97.5 degrees, pulse 102, respiratory rate 16, blood pressure 162/57, oxygen saturation 99% on room air. HEENT: Head normocephalic. No trauma. PERRLA. Neck: Supple. No JVD. No masses. Central trachea. Chest: Clear to auscultation. Abdomen: Soft. Some discomfort to palpation at the level of the lower abdomen. Extremities: No edema. No clubbing. No cyanosis. Neurological: The patient is alert she is following commands. She is oriented. LABORATORY: WBC less than 0.20, hemoglobin 7.8, hematocrit 23.9, platelet 124,000, neutrophil count 0.09. Sodium 138, potassium 4.6, chloride 105, bicarbonate 18, BUN 117, creatinine 5.4, glucose 164, calcium 9.7, phosphorus 5.1, albumin 2.8. ASSESSMENT AND PLAN: 1. Myelofibrosis with severe anemia, neutropenia, basically pancytopenia, her platelet count also is decreasing, Hematology/Oncology following this patient. We will continue following the recommendations. I will continue to monitor just for now. 2. Acute on chronic kidney disease. Nephrology department on board. She just had a double-J stent removed bilaterally and a new double-J stent has been placed with kidney stones removed bilaterally, urology department on board. 3. Type 2 diabetes. Continue pattern of blood sugar and sliding scale insulin. 4. Hypertension. Continue home medication. 5. Gastroesophageal reflux disease. Continue with proton pump inhibitors. 6. Dysuria, so far culture negative. cc: David Arvizu MD
[2019-01-31] MEDS: NORCO-5 PO PRN ×2 (03:47→20:06)
[2019-01-31] MEDS: HUMALOG SUBQ SCH ×4 (06:06→20:00)
[2019-01-31 06:51] LABS: ALB/GLOB RATIO 0.7; ALBUMIN 2.4 g/dL (3.5-5.0); CALCIUM 7.8 mg/dL (8.8-10.2); CREATININE 4.1 mg/dL (0.5-0.9); HEMATOCRIT 20.1 % (37.0-47.0); HEMOGLOBIN 6.6 g/dL (12.0-16.0); LYMPH# 0.13 X1000 (1.2-3.4); MCH 28.9 PG (27-31); MCHC 32.8 g/dL (33-37); MCV 88.2 FL (81-99); MONO# 0.01 X1000 (0.11-0.59); PLT 100 X1000 (130-400); POTASSIUM 3.8 mmol/L (3.5-5.1); RBC 2.28 XMIL (4.2-5.4); RDW 14.5 % (11.5-14.5); TOTAL BILIRUBIN 0.48 mg/dL (0.20-1.00); TOTAL PROTEIN 5.9 g/dL (6.3-8.3)
[2019-01-31 06:53] LABS: NEUT# 0.06 X1000 (1.4-6.5)
[2019-01-31 07:24] LABS: LYMPHS 68 % (21-51); MONO 6 % (1-9); SEGS 26 % (42-75)
--- NOTE | 2019-01-31 08:50 | Diag Imaging Result Doc PS360 ---
FLUROSCOPY CYSTO - 01/29/2019 INDICATION: STENT PLACEMENTS TECHNIQUE: The exam was performed by the patient's urologist. 21 images were obtained. COMPARISON: 12/16/2018 FINDINGS: Bilateral nephroureteral stent exchange was performed. The new stents are in good position. IMPRESSION: No complication. Electronically signed by Arvind Kidd 01/31/2019 8:48 AM
[2019-01-31] MEDS: SODIUM BICARBONATE 8.4% 150 MEQ in D5W 1,000 ML IV SCH (09:14)
[2019-01-31] MEDS: FOLIC ACID PO SCH (09:15)
[2019-01-31] MEDS: JANUVIA PO SCH (09:15)
[2019-01-31] MEDS: PRILOSEC PO SCH (09:15)
[2019-01-31] MEDS: COLACE PO SCH ×2 (09:16→20:07)
[2019-01-31] MEDS: SINGULAIR PO SCH (09:16)
[2019-01-31] MEDS: ZYLOPRIM PO SCH (09:16)
[2019-01-31 14:07] LABS: URINE SOURCE CATH
[2019-01-31 14:11] LABS: BILIRUBIN URINE NEGATIVE (NEGATIVE); BLOOD URINE MODERATE (NEGATIVE); COLOR ORANGE; GLUCOSE URINE NEGATIVE (NEGATIVE); KETONE URINE NEGATIVE (NEGATIVE); LEUKOCYTES URINE LARGE (NEGATIVE); NITRITE URINE NEGATIVE (NEGATIVE); PH URINE 6.5; PROTEIN URINE 100 mg/dL (NEGATIVE); SP GRAVITY URINE 1.011; TURBIDITY URINE TURBID (CLEAR); UROBILINOGEN URINE NORMAL (NORMAL)
[2019-01-31 14:27] LABS: UR EPITHELIAL CELLS >10 /HPF (<10); URINE BACTERIA NEGATIVE /HPF; URINE WBC TNTC /HPF (<10)
[2019-01-31 14:28] LABS: URINE CASTS GRANULAR PRESENT; URINE CRYSTALS NONE SEEN; URINE SMALL ROUND CELLS NONE SEEN; URINE YEAST PRESENT
--- NOTE | 2019-01-31 15:19 | NEPHROLOGY PROGRESS NOTE ---
DATE: 01/31/2019 SUBJECTIVE: Patient is sitting up in bed. She is eating breakfast. She denies any chest pain, shortness of breath, nausea, or vomiting today. OBJECTIVE: Vital Signs: Temperature 98.6 degrees, pulse 98, respiratory rate 13, blood pressure 125/57. Intake 3.1 L. Output 2.9 L. General: Middle-aged female, resting in bed. Awake and alert. No acute distress. HEENT: Normocephalic, atraumatic. ANIKET. Conjunctivae are pale. Oral mucosa dry. Neck is supple with trace JVD. Cardiovascular: Regular rate and rhythm with a gallop. No murmur noted. Pulmonary: She has equal excursion. She is clear bilaterally. She has decreased breath sounds posterior. Abdomen is soft with positive bowel sounds. : Not inspected. She has a Garcia catheter. Extremities: No clubbing, cyanosis. She has trace pedal edema. Integumentary: Skin is warm and dry. Lab Data: WBC of 0.2, hemoglobin 6.6, platelets of 100,000. Sodium 139, potassium 3.8, CO2 of 24, creatinine 4.1 (5.4, 5.7, 6.4). Albumin 2.4. ASSESSMENT AND PLAN: 1. Acute overlying chronic kidney disease secondary to obstructive uropathy. She has had steady improvement with her renal function over the weekend. Urine output is adequate. No changes needed from a renal perspective. 2. Metabolic acidosis, resolved. I will stop her bicarbonate drip today. She is eating and drinking well. I will hold off adding additional fluids at this time. 3. Anemia. Patient with myelofibrosis, neutropenia, and pancytopenia, is followed by Dr. Paul and has been receiving transfusions per his orders. We will defer. Dictated by AMALIA Agarwal for Samuel Gonzalez MD Face to face encounter, data reviewed, discussed with Elijah Mancini on 01/31/19. I agree with the above assessment and plan of care. cc: Samuel Gonzalez MD [facility]
--- NOTE | 2019-01-31 17:07 | PROGRESS NOTE ---
DATE: 01/31/2019 SUBJECTIVE: Patient has no major complaints. She seems a little bit tired, quiet. OBJECTIVE: vital signs: Blood pressure 134/59, heart rate 90, respiratory rate of 19, temperature 97.8 degrees, 100% on room air. Cardiovascular: Regular rate and rhythm. Pulmonary: Bilateral breath sounds, clear to auscultation. Gastrointestinal: Soft, nontender, nondistended. Bowel sounds are positive. LABORATORY DATA: White count is 0.2, hemoglobin and hematocrit 6.6 and 20, platelets of a 100,000 with 0.06 neutrophils. BUN and creatinine 95 and 4.1. PROBLEM LIST: 1. Myelofibrosis with severe anemia and neutropenia. Hematology/Oncology is following, which I think we are just kind of watching right now. I think probably qualifies for a transfusion. I am not sure in this setting whether Neupogen would be of any benefit since it is a bone marrow degeneration problem, but we will continue to monitor. 2. Acute on chronic kidney. Dr. Gonzalez following. Double-J stent in place. Kidney function is stable. Urine output is acceptable. 3. Type 2 diabetes. We will follow blood sugars closely. DISPOSITION: Again, waiting for counts to resolve and hopefully to be stable enough to be discharged, but continue to follow. cc: Mayank Marks MD
[2019-01-31] MEDS: COREG PO SCH (20:06)
[2019-02-01] MEDS: HUMALOG SUBQ SCH ×4 (06:08→20:06)
[2019-02-01 06:30] LABS: EOS# 0.01 X1000 (0.0-0.7); HEMATOCRIT 20.5 % (37.0-47.0); HEMOGLOBIN 6.5 g/dL (12.0-16.0); LYMPH# 0.12 X1000 (1.2-3.4); MCH 28.1 PG (27-31); MCHC 31.7 g/dL (33-37); MCV 88.7 FL (81-99); MONO# 0.01 X1000 (0.11-0.59); MPV 11.1 FL (7.4-10.4); PLT 83 X1000 (130-400); RBC 2.31 XMIL (4.2-5.4); RDW 14.2 % (11.5-14.5)
[2019-02-01 06:36] LABS: NEUT# 0.06 X1000 (1.4-6.5)
[2019-02-01 07:08] LABS: ALBUMIN 2.4 g/dL (3.5-5.0); CALCIUM 8.2 mg/dL (8.8-10.2); CREATININE 2.6 mg/dL (0.5-0.9); PHOSPHORUS 3.6 mg/dL (2.7-4.5)
[2019-02-01] MEDS: COLACE PO SCH ×2 (09:48→20:01)
[2019-02-01] MEDS: SINGULAIR PO SCH (09:48)
[2019-02-01] MEDS: PRILOSEC PO SCH (09:49)
[2019-02-01] MEDS: SODIUM BICARBONATE PO SCH ×2 (09:49→20:01)
[2019-02-01] MEDS: JANUVIA PO SCH (09:49)
[2019-02-01] MEDS: FOLIC ACID PO SCH (09:49)
[2019-02-01] MEDS: COREG PO SCH ×2 (09:50→20:01)
--- NOTE | 2019-02-01 11:51 | NEPHROLOGY PROGRESS NOTE ---
DATE: 02/01/2019 SUBJECTIVE: The patient is resting in bed. She has no complaints today. OBJECTIVE: Vital Signs: Temperature 98.9 degrees, pulse 89, respiratory rate 17, blood pressure 115/50. Intake 1.1 L. Output 3.2 L. General: Middle-aged female, resting in bed. She is in no acute distress. HEENT: Normocephalic, atraumatic. ANIKET. Neck: Supple, with trace JVD in the reclined position. Cardiovascular: Regular rate and rhythm with a gallop. Pulmonary: She is clear bilaterally. Abdomen: Soft, with positive bowel sounds. : Continues with the Garcia catheter. She has almost peach-tinged urine. Extremities: No clubbing, cyanosis. Continues with some trace pedal and pretibial edema. Integumentary: Skin is warm and dry. Lab Data: Hemoglobin 6.5, WBCs 0.2, platelets of 83,000. CO2 of 25, BUN 76, creatinine 2.6. ASSESSMENT AND PLAN: 1. Acute overlying chronic kidney disease secondary to obstructive uropathy. Renal function has continued to improve steadily. No changes. 2. Metabolic acidosis is resolved. However, because of her propensity to develop obstructive uropathy with stones, we will check her urine pH. We will restart some oral bicarbonate secondary to her CO2 level of 25 instead of the intravenous bicarbonate. We need her urine pH to stay greater than 5. 3. Anemia. Followed by primary and hematology/oncology. They have been determining her transfusion needs. We will continue to defer. Dictated by AMALIA Agarwal for Samuel Gonzalez MD Face to face encounter, data reviewed, discussed with Elijah Mancini on 02/01/19. I agree with the above assessment and plan of care. cc: Samuel Gonzalez MD [facility]
[2019-02-01] MEDS ORDERED: NEUPOGEN SUBQ SCH (16:00)
[2019-02-01] MEDS: GRANIX SUBQ SCH (17:39)
--- NOTE | 2019-02-01 17:51 | PROGRESS NOTE ---
DATE: 02/01/2019 SUBJECTIVE: Patient reports no main complaint. She continues to feel tired but not short of breath. No fever. OBJECTIVE: Vital Signs: Temperature 97.4 degrees, heart rate 79, respiratory rate 18, blood pressure 115/57, and O2 saturation 100% on room air. General: On examination, this is a chronically ill-looking 58-year-old female lying in bed, in no acute distress. Cardiovascular: S1 and S2 heard. No murmurs, gallops, or rubs. Regular rate and rhythm. Respiratory: Clear bilaterally to auscultation. No work of breathing. Not using accessory muscles. Abdomen: Soft, nontender to palpation. Bowel sounds present. No organomegaly. Extremities: No clubbing, cyanosis, or edema. Peripheral pulses present in both legs. Neurological: Patient is alert, oriented x3. Moves 4 extremities. LABORATORY DATA: White cell count 0.2, hemoglobin 6.5, hematocrit 28.5, platelets 83 with neutrophil count 60. Creatinine 2.6. ASSESSMENT AND PLAN: 1. Myelofibrosis with severe anemia and neutropenia. Hemoglobin is low today so we are going to transfuse 1 unit of blood. Also platelet continues to get down as well as neutrophil count. We are going to start Neupogen. Awaiting still consultation from Hematology/Oncology. We will follow their recommendations. 2. Acute on chronic kidney disease. Creatinine continues to improve. Apparently, there is a history of obstructive uropathy with double-J stents in place. We will continue to monitor. 3. Diabetes mellitus type 2. We will continue with sliding scale insulin. Accu-Chek before meals and also at bedtime. 4. Disposition. We will continue to monitor her CBC daily. cc: Bi Lynn MD
[2019-02-01] MEDS ORDERED: OFIRMEV 1000 MG/ISOTONIC SOLN 1,000 MG/100 ML BOTTLE IV PRN (18:44)
[2019-02-01] MEDS: NORCO-5 PO PRN (18:48)
[2019-02-01] MEDS: NS 500 ML IV SCH (19:16)
[2019-02-01] MEDS: PATIENT'S OWN MED PO SCH (20:00)
[2019-02-02 00:54] LABS: URINE SOURCE CATH
[2019-02-02 00:56] LABS: BILIRUBIN URINE NEGATIVE (NEGATIVE); BLOOD URINE SMALL (NEGATIVE); COLOR YELLOW; GLUCOSE URINE NEGATIVE (NEGATIVE); KETONE URINE NEGATIVE (NEGATIVE); LEUKOCYTES URINE LARGE (NEGATIVE); NITRITE URINE NEGATIVE (NEGATIVE); PH URINE 6.5; PROTEIN URINE 70 mg/dL (NEGATIVE); SP GRAVITY URINE 1.013; TURBIDITY URINE HAZY (CLEAR); UROBILINOGEN URINE NORMAL (NORMAL)
[2019-02-02 01:17] LABS: UR EPITHELIAL CELLS <10 /HPF (<10); URINE BACTERIA NEGATIVE /HPF; URINE RBC <10 /HPF (<10); URINE WBC TNTC /HPF (<10)
[2019-02-02 01:37] LABS: URINE YEAST PRESENT
[2019-02-02 01:38] LABS: URINE CASTS NONE SEEN; URINE CRYSTALS NONE SEEN; URINE SMALL ROUND CELLS NONE SEEN
[2019-02-02] MEDS: NORCO-5 PO PRN (06:24)
[2019-02-02] MEDS: HUMALOG SUBQ SCH ×2 (06:25→11:00)
[2019-02-02 06:50] LABS: EOS# 0.01 X1000 (0.0-0.7); EOS% 3.4 % (0.0-10.0); HEMATOCRIT 21.9 % (37.0-47.0); IMM GRAN# 0.03 X1000 (0.0-0.04); IMM GRAN% 10.3 % (0.0-0.5); LYMPH# 0.18 X1000 (1.2-3.4); LYMPH% 62.1 % (20.5-51.1); MCH 28.2 PG (27-31); MCV 88.3 FL (81-99); MONO# 0.01 X1000 (0.11-0.59); MONO% 3.4 % (1.7-9.3); MPV 11.6 FL (7.4-10.4); NEUT% 20.8 % (42.2-75.2); PLT 63 X1000 (130-400); RBC 2.48 XMIL (4.2-5.4); RDW 14.9 % (11.5-14.5); WBC 0.29 X1000 (4.8-10.8)
[2019-02-02 06:55] LABS: NEUT# 0.06 X1000 (1.4-6.5)
[2019-02-02 07:06] LABS: ALBUMIN 2.4 g/dL (3.5-5.0); CREATININE 2.1 mg/dL (0.5-0.9); PHOSPHORUS 3.4 mg/dL (2.7-4.5)
[2019-02-02] MEDS ORDERED: SODIUM BICARBONATE PO SCH (09:00)
[2019-02-02] MEDS: FOLIC ACID PO SCH (10:18)
[2019-02-02] MEDS: JANUVIA PO SCH (10:19)
[2019-02-02] MEDS: COLACE PO SCH ×2 (10:19→10:27)
[2019-02-02] MEDS: SINGULAIR PO SCH (10:19)
[2019-02-02] MEDS: PRILOSEC PO SCH (10:19)
[2019-02-02] MEDS: COREG PO SCH (10:24)
[2019-02-02] MEDS: GRANIX SUBQ SCH (10:25)
[2019-02-02 11:55] VITALS: BP 139/69
--- NOTE | 2019-02-02 13:33 | NEPHROLOGY PROGRESS NOTE ---
DATE: 02/02/2019 SUBJECTIVE: Patient is sitting up in bed. She states that she really wants to go home. She states that she had a low-grade fever yesterday but that she also reinforced she felt that was before her blood transfusion. OBJECTIVE: Vital Signs: Temperature 98 degrees, pulse 80, respiratory rate 18, Intake 1.2 L, output 2.4 L. General: This is a middle-aged female resting in bed in no acute distress. HEENT: Normocephalic. Atraumatic. Conjunctivae are pale. Neck: Supple. No JVD in upright position. Cardiovascular: Regular rate and rhythm with a gallop. Pulmonary: Clear bilaterally. Abdomen: Soft, positive bowel sounds. Genitourinary: Clear urine today. Extremity: No clubbing or cyanosis. She has just scant pedal edema. Integumentary: Skin is warm and dry. LABORATORY DATA: WBC 0.2, hemoglobin 7, sodium 139. Potassium 4.0. creatinine 2.1. ASSESSMENT AND PLAN: 1. 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 Renal function continues with modest improvement. No changes to current treatment plan. 2. Anemia. She is followed by Hematology/Oncology. She did receive a transfusion yesterday. I spoke to the Oncology nurse practitioner and from a renal perspective we have no indication that she would need to remain in the hospital. She can be discharged at the discretion of the primary. We will defer to them for those orders. 3. Uric acid stones. On sodium bicarbonate. Unable to give allopurinol because of her cytopenias. Dictated by AMALIA Agarwal for Samuel Gonzalez MD Face to face encounter, data reviewed, discussed with Elijah Mancini on 02/02/19. I agree with the above assessment and plan of care. cc: Samuel Gonzalez MD [facility]
--- NOTE | 2019-02-03 10:32 | DISCHARGE SUMMARY ---
ADMISSION DATE: 01/26/2019 DISCHARGE DATE: 02/02/2019 DISCHARGE DIAGNOSES: 1. Myelofibrosis with pancytopenia, improved. 2. Chronic anemia related to myelofibrosis. 3. Diabetes mellitus type 2. 4. Bilateral hydronephrosis with indwelling bilateral double J stents, stable. 5. Diabetes mellitus type 2. 6. Hypertension. 7. Gastroesophageal reflux disease. CONSULTATIONS: 1. Dr. Samuel Gonzalez from Nephrology. 2. Dr. Ocampo from Urology. 3. Dr. Paul from Hematology/Oncology. HOSPITAL COURSE: In brief, this is a 58-year-old female with history of myelofibrosis and essential thrombocytopenia, who presented as a direct admission from Dr. Paul's office after having hemoglobin of 4.5. She received, so far here in the hospital, 3 units of blood. Hemoglobin at discharge is 7.0. Also, her white cell count has been between 0.37 and 0.29, and neutrophil has been always low, between 60 and 160. Platelet count was 63,000 at discharge. I checked with Dr. Paul, and he is aware of his numbers, and he is okay for her to go home. She is going to be seen in the office within a week. OBJECTIVE: Vital Signs: Temperature 97.3 degrees, heart rate 76, respiratory rate 18, blood pressure 129/69, O2 saturation 100% on room air. General: This is a 58-year-old female, looking older than her stated age, lying in bed in no acute distress. Cardiovascular: S1, S2 heard. No murmurs, gallops, or rubs. Regular rate and rhythm. Respiratory: Clear bilaterally to auscultation. No work of breathing or using accessory muscles. Abdomen: Soft. Nontender to palpation. Bowel sounds present. No organomegaly. Extremities: No clubbing, cyanosis, or edema. Peripheral pulses present in both legs. Neurological: The patient is alert and oriented x3. Moves 4 extremities. DISCHARGE DISPOSITION: Home to self-care. DISCHARGE MEDICATIONS: 1. Sodium bicarbonate 1300 mg 1 tablet p.o. b.i.d. 2. [place] 5 mg 1 tablet p.o. every 4 to 6 hours as needed. 3. Carvedilol 25 mg 1 tablet p.o. b.i.d. 4. Omeprazole 40 mg 1 tablet p.o. daily. 5. Singulair 10 mg 1 tablet p.o. daily. 6. Docusate 100 mg 1 tablet p.o. b.i.d. 7. Exjade 1500 mg p.o. at bedtime. 8. Aspirin 81 mg 1 tablet p.o. daily. 9. Folic acid 1 mg 1 tablet p.o. daily. 10. Vitamin D2, 50,000 units p.o. weekly. 11. Jentadueto 2.5/850 mg 1 tablet p.o. daily. 12. Januvia 1 tablet p.o. daily. 13. Losartan 100/25 mg 1 tablet p.o. daily. TIME SPENT: Time discharging this patient was 35 minutes. cc: Bi Lynn MD
== END 2019-02-02 17:18 | disposition home or self-care (01) | DRG 988 ==
LOC: DIRADM → SUATTDRO 10:53 → OBSVTOIN 10:53 → EDIPHOLD 11:39 → 1N 14:09
PROVIDERS: ATTEND Internal Medicine

== ENCOUNTER 2019-03-16 09:55 | Observation (INO) ==
[2019-03-16] MEDS ORDERED: NS 500 ML ONE (17:17)
[2019-03-16] MEDS ORDERED: BENADRYL PO ONE (18:15)
[2019-03-16] MEDS ORDERED: TYLENOL PO ONE (18:15)
[2019-03-16] MEDS: BENADRYL PO PRN (23:10)
[2019-03-17] MEDS: BENADRYL PO PRN (06:52)
[2019-03-17 12:41] VITALS: BP 160/82
[2019-03-17 12:48] LABS: HEMATOCRIT 29.1 % (37.0-47.0); HEMOGLOBIN 9.3 g/dL (12.0-16.0)
== END 2019-03-17 14:45 | disposition home or self-care (01) ==
LOC: INF 09:55 → 3N 09:55
PROVIDERS: ADMIT Internal Medicine Hematology & Oncology; ATTEND Internal Medicine Hematology & Oncology

== ENCOUNTER 2019-05-27 10:48 | Observation (INO) ==
[2019-05-27] MEDS ORDERED: TYLENOL PO ONE (11:28)
[2019-05-27] MEDS ORDERED: BENADRYL PO ONE (11:29)
[2019-05-27] MEDS ORDERED: NORCO-5 PO PRN (11:44)
[2019-05-27] MEDS ORDERED: NS 500 ML ONE (18:06)
[2019-05-27] MEDS: MUCINEX DM PO SCH (20:13)
[2019-05-27] MEDS: COREG PO SCH (20:15)
[2019-05-27] MEDS: COLACE PO SCH (20:15)
[2019-05-27] MEDS ORDERED: PATIENT'S OWN MED PO SCH (21:00)
[2019-05-27] MEDS ORDERED: TRAVATAN 0.004% OPH SOLN BOTH EYES SCH (21:00)
[2019-05-28] MEDS ORDERED: PRILOSEC PO SCH (07:00)
[2019-05-28 07:57] VITALS: BP 110/49
[2019-05-28] MEDS: MUCINEX DM PO SCH (08:43)
[2019-05-28] MEDS: COLACE PO SCH (08:44)
[2019-05-28] MEDS: COREG PO SCH (08:45)
[2019-05-28] MEDS ORDERED: KLOR-CON PO SCH (09:00)
[2019-05-28] MEDS ORDERED: SINGULAIR PO SCH (09:00)
[2019-05-28] MEDS ORDERED: ZAROXOLYN PO SCH (09:00)
[2019-05-28] MEDS ORDERED: FOLIC ACID PO SCH (09:00)
[2019-05-28] MEDS ORDERED: JANUVIA PO SCH (09:00)
[2019-05-28] MEDS ORDERED: ASPIRIN EC PO SCH (09:00)
[2019-05-28 10:31] LABS: HEMATOCRIT 21.8 % (37.0-47.0); HEMOGLOBIN 6.9 g/dL (12.0-16.0); MCHC 31.7 g/dL (33-37); MCV 88.6 FL (81-99); MPV 9.5 FL (7.4-10.4); RBC 2.46 XMIL (4.2-5.4); RDW 16.5 % (11.5-14.5); WBC 1.13 X1000 (4.8-10.8)
== END 2019-05-28 12:08 | disposition home or self-care (01) ==
LOC: DIRADM → 1N 10:48
PROVIDERS: ADMIT Internal Medicine; ATTEND Internal Medicine

== ENCOUNTER 2019-06-24 10:24 | Inpatient (IN) ==
[2019-06-24] MEDS ORDERED: ZOFRAN IV PRN (13:32)
[2019-06-24] MEDS ORDERED: TYLENOL PO PRN (13:32)
[2019-06-24] MEDS ORDERED: TYLENOL PO ONE (13:40)
[2019-06-24] MEDS ORDERED: NS 500 ML IV ONE (13:40)
[2019-06-24] MEDS ORDERED: BENADRYL PO ONE ×2 (13:40→20:15)
[2019-06-24] MEDS: NS 1,000 ML IV SCH (14:03)
--- NOTE | 2019-06-24 14:04 | HISTORY AND PHYSICAL ---
REASON FOR ADMISSION: Ms. Ojeda is a 58-year-old who has a history of myelofibrosis. PAST MEDICAL HISTORY: 1. Myelofibrosis, followed by Dr. Paul. 2. Chronic anemia related to myelofibrosis requiring multiple transfusions in the past. 3. Diabetes mellitus type 2. 4. Reported cystic fibrosis. 5. Hypertension. 6. Gastroesophageal reflux disease. 7. Hyperlipidemia. 8. Chronic bilateral hydronephrosis, right greater than the left. She has double J stents placed. PAST SURGICAL HISTORY: 1. Bone marrow biopsy. 2. Right upper chest port placement. 3. Bilateral double-J stents. 4. Status post bladder stone removal. SOCIAL HISTORY: Denies alcohol or tobacco or illicit drugs. ALLERGIES: Lodine, hydroxyurea, unknown reactions to these. HISTORY OF PRESENT ILLNESS: She states she has just felt kind of tired and fatigued. She had her blood checked and was reported to have a hemoglobin of 4 and low neutrophils and so was admitted here for transfusion. She does not have any report of fever or chills, or sign of infection. No gross hematuria or dysuria. No cough or sputum production. No rashes or focal joint pain. No chills reported. FAMILY HISTORY: She does not report any significant family history in previous medical documents. REVIEW OF SYSTEMS: General: No weight gain or loss. No fever or chills. HEENT: Unremarkable. No change in visual or hearing acuity. Respiratory: No increased work of breathing or dyspnea. Cardiovascular: No chest pain or tachy palpitation. Gastrointestinal and Genitourinary: No gross hematuria or dysuria. Musculoskeletal/Neurologic: No focal complaints. Endocrinologic/hematologic: No significant history. PHYSICAL EXAMINATION: VITAL SIGNS: Temperature 98.2 degrees, pulse 80, respirations 20, blood pressure 95/53. HEENT: Pupils are equal and round. LUNGS: Clear anterolateral. GENERAL: She is awake, alert and oriented. No sign of shortness of breath. Answers questions appropriately. Weight 153 pounds. Height 5 feet 3 inches. CARDIOVASCULAR: Regular rhythm and rate without murmur or S3. ABDOMEN: Soft, nondistended, nontender. SKIN: Warm and dry. NECK: Supple. No distended neck veins. CVP less than 6 cm. ASSESSMENT AND PLAN: 1. Labs reported from Dr. Paul today, hemoglobin of 4. We will check another CBC. We will check a Chem 22. We will check her T4, TSH, B12, folate, and we will initiate some blood. She has had numerous transfusions so she may have quite a bit of antibody response, so it is likely she will need several units, at least 4 units of blood to try and get her hemoglobin above 7. She shows no sign of infection, but does report being neutropenic, so we will put her on contact precautions. 2. Diabetes mellitus type 2. Check pattern sugars. Sliding scale. 3. History of hypertension. 4. Gastroesophageal reflux. 5. Hyperlipidemia. 6. History of bilateral hydronephrosis with double-J stents. 7. She was reported to have cystic fibrosis, was seen at [facility] for a time. We do not have any details on that. cc: London Le MD MTDD
--- NOTE | 2019-06-24 14:31 | EKG Report ---
Test Performed on : 06/24/2019 2:07:58 PM Test Reason : chest pain Blood Pressure : / mmHG Vent. Rate : 087 BPM Atrial Rate : 087 BPM P-R Int : 188 ms QRS Dur : 086 ms QT Int : 378 ms P-R-T Axes : 059 082 145 degrees QTc Int : 454 ms Normal sinus rhythm. T wave abnormality, consider lateral ischemia Abnormal ECG When compared with ECG of 02-SEP-2018 06:16, Nonspecific T wave abnormality no longer evident in Anterior leads Inverted T waves have replaced nonspecific T wave abnormality in Lateral leads Confirmed by Shashi MORALES, Bakari Chavez ([id number]) on 06/26/2019 9:24:47 AM
[2019-06-24 15:01] LABS: IRON SATURATION 54 %; TIBC 167 ug/dL; TOTAL IRON 90 ug/dL (49-151); UNBOUND IRON 77 ug/dL (112-346)
[2019-06-24 15:32] LABS: HEMATOCRIT 12.1 % (37.0-47.0); HEMOGLOBIN 3.8 g/dL (12.0-16.0); IMM GRAN# 0.08 X1000 (0.0-0.04); IMM GRAN% 13.6 % (0.0-0.5); LYMPH# 0.19 X1000 (1.2-3.4); LYMPH% 32.2 % (20.5-51.1); MCH 26.8 PG (27-31); MCHC 31.4 g/dL (33-37); MCV 85.2 FL (81-99); MONO# 0.03 X1000 (0.11-0.59); MONO% 5.1 % (1.7-9.3); MPV 10.9 FL (7.4-10.4); NEUT# 0.29 X1000 (1.4-6.5); NEUT% 49.1 % (42.2-75.2); PLT 246 X1000 (130-400); RBC 1.42 XMIL (4.2-5.4); WBC 0.59 X1000 (4.8-10.8)
[2019-06-24] MEDS: HUMULIN R SUBQ SCH ×2 (15:40→20:57)
[2019-06-24 15:46] LABS: FERRITIN 7573 ng/mL (13-150)
[2019-06-24 15:53] LABS: BANDS 10 % (0-1); LYMPHS 40 % (21-51); SEGS 50 % (42-75)
[2019-06-24] MEDS: NORCO-5 PO PRN (16:57)
[2019-06-24] MEDS: TRAVATAN 0.004% OPH SOLN BOTH EYES SCH (20:55)
[2019-06-24] MEDS: COLACE PO SCH (20:55)
[2019-06-24] MEDS: MUCINEX DM PO SCH (20:55)
[2019-06-24] MEDS: COREG PO SCH (20:56)
[2019-06-25] MEDS: NORCO-5 PO PRN ×3 (01:18→22:41)
[2019-06-25] MEDS: PRILOSEC PO SCH (06:31)
[2019-06-25] MEDS: NS 1,000 ML IV SCH ×2 (06:39→17:15)
[2019-06-25] MEDS: HUMULIN R SUBQ SCH ×4 (06:40→22:43)
[2019-06-25 08:44] LABS: EOS# 0.01 X1000 (0.0-0.7); EOS% 1.3 % (0.0-10.0); IMM GRAN# 0.03 X1000 (0.0-0.04); IMM GRAN% 3.8 % (0.0-0.5); LYMPH# 0.21 X1000 (1.2-3.4); LYMPH% 26.3 % (20.5-51.1); MCH 26.8 PG (27-31); MCHC 31.6 g/dL (33-37); MCV 84.8 FL (81-99); MONO# 0.05 X1000 (0.11-0.59); MONO% 6.3 % (1.7-9.3); MPV 10.7 FL (7.4-10.4); NEUT% 62.3 % (42.2-75.2); PLT 239 X1000 (130-400); RBC 2.24 XMIL (4.2-5.4); RDW 17.2 % (11.5-14.5)
[2019-06-25 08:46] LABS: AGAP 14; ALBUMIN 3.4 g/dL (3.5-5.0); ALKALINE PHOSPHATASE 157 U/L (32-104); BUN 65 mg/dL (8-22); CALCIUM 8.7 mg/dL (8.8-10.2); CHLORIDE 100 mmol/L (98-107); COSMO 283; CREATININE 2.6 mg/dL (0.5-0.9); ESTIMATED GFR 23; GLUCOSE 98 mg/dL (70-104); GOT 8 U/L (10-30); GPT < 5 U/L (10-36); MAGNESIUM 1.4 mg/dL (1.5-2.7); POTASSIUM 4.2 mmol/L (3.5-5.1); SODIUM 132 mmol/L (136-145); TCO2 18 mmol/L (25-35); TOTAL BILIRUBIN 1.28 mg/dL (0.20-1.00); TOTAL PROTEIN 6.7 g/dL (6.3-8.3)
[2019-06-25 08:53] LABS: FREE T4 1.28 ng/dL (0.93-1.70); TSH 1.94 uIUmL (0.27-4.20)
--- NOTE | 2019-06-25 09:41 | PROGRESS NOTE ---
DATE: 06/25/2019 SUBJECTIVE: Ms. Ojeda was sitting up in a chair. She felt much better. Hemoglobin was 6 this morning. I think we are going to want to give her 2 more units packed red blood cells. OBJECTIVE: Vital signs: Today temperature 98 degrees, pulse 80, respirations 22, blood pressure 111/62. HEENT: Pupils are equal and round. Lungs: Clear in all lung tamez. Cardiovascular: Regular rhythm and rate without murmur or S3. Urine output: She has had good urine output by report. ASSESSMENT AND PLAN: 1. Myelofibrosis with pancytopenia but anemia in particular. Gave her 2 units. I think we are going to give her 2 more units. She looks good, feels better. 2. Diabetes mellitus type 2. Follow pattern sugars. 3. Hypertension. 4. Gastroesophageal reflux. 5. Hyperlipidemia. 6. Bilateral hydronephrosis with double-J stents placed. I do not have her on any antibiotic. I do not see any evidence of infection right now. She does have significant neutropenia. Platelet count is 239,000, which is good. cc: London Le MD
[2019-06-25] MEDS: COREG PO SCH ×2 (10:30→22:42)
[2019-06-25] MEDS: FOLIC ACID PO SCH (10:30)
[2019-06-25] MEDS: KLOR-CON PO SCH (10:30)
[2019-06-25] MEDS: COLACE PO SCH ×2 (10:30→22:42)
[2019-06-25] MEDS: MUCINEX DM PO SCH ×2 (10:30→22:41)
[2019-06-25] MEDS: JANUVIA PO SCH (10:30)
[2019-06-25] MEDS: ASPIRIN EC PO SCH (10:30)
[2019-06-25] MEDS: SINGULAIR PO SCH (10:30)
--- NOTE | 2019-06-25 10:48 | Diag Imaging Result Doc PS360 ---
EXAM: CHEST-PORTABLE INDICATION: r/o pna TECHNIQUE: One view COMPARISON: 12/15/2018 FINDINGS: The right chest port is in stable position. The lungs are grossly clear. There is a curvilinear lucency at the periphery of the left lung. This probably represents an overlying skinfold as there is suggestion of very subtle lung markings in this region. A small pneumothorax cannot completely be excluded. A repeat chest radiograph with inspiration and expiration, preferably a PA standing radiograph is suggested. Cardiac silhouette is mildly prominent but stable, possibly due to magnification from AP technique. IMPRESSION: Curvilinear lucency at the periphery of the left lung. Please see the above discussion. Electronically signed by Joey Brink 06/25/2019 10:46 AM
[2019-06-25 11:53] LABS: BANDS 20 % (0-1); LARGE PLATELETS 1+; LYMPHS 30 % (21-51); SEGS 50 % (42-75)
[2019-06-25] MEDS: TRAVATAN 0.004% OPH SOLN BOTH EYES SCH (22:42)
[2019-06-26] MEDS: NS 1,000 ML IV SCH (02:17)
[2019-06-26] MEDS: HUMULIN R SUBQ SCH (06:09)
[2019-06-26] MEDS: PRILOSEC PO SCH (06:33)
[2019-06-26] MEDS: COLACE PO SCH (09:00)
[2019-06-26] MEDS: MUCINEX DM PO SCH (09:00)
[2019-06-26] MEDS: FOLIC ACID PO SCH (09:00)
[2019-06-26] MEDS: SINGULAIR PO SCH (09:00)
[2019-06-26] MEDS: JANUVIA PO SCH (09:00)
[2019-06-26] MEDS: COREG PO SCH (09:00)
[2019-06-26] MEDS: ASPIRIN EC PO SCH (09:00)
[2019-06-26] MEDS: KLOR-CON PO SCH (09:00)
[2019-06-26] MEDS: NORCO-5 PO PRN (09:07)
[2019-06-26 11:08] VITALS: BP 107/50
--- NOTE | 2019-06-26 11:15 | DISCHARGE SUMMARY ---
ADMISSION DATE: 06/24/2019 DISCHARGE DATE: 06/26/2019 Ms. Ojeda is a 58-year-old with a history of myelofibrosis. PAST MEDICAL HISTORY: 1. Myelofibrosis, followed by Dr. Paul. 2. Chronic anemia and pancytopenia from myelofibrosis, requiring multiple transfusions in the past. 3. Diabetes mellitus type 2. 4. Reported cystic fibrosis. 5. Hypertension. 6. Gastroesophageal reflux disease. 7. Hyperlipidemia. 8. Chronic bilateral hydronephrosis, right greater than the left. She has had double-J stents placed. PAST SURGICAL HISTORY: 1. Bone marrow biopsy. 2. Right upper chest port placement. 3. Bilateral double-J stents. 4. Status post bladder stone removal. HOSPITAL COURSE: She was admitted with anemia and to get transfusion. Her hemoglobin was 3.8, hematocrit was 12, so she got a total of 4 units of packed red blood cells. After the first two units, the hemoglobin came up to 6. Gave her another 2 units and she wanted to go home so we will let her go home. DISCHARGE MEDICATIONS: Aspirin 81 mg a day, Coreg 25 mg b.i.d., Colace 100 mg b.i.d., folic acid 1 mg daily, Prilosec 40 mg daily, Singulair 10 mg daily, Klor-Con 20 mEq p.o. daily, Januvia 25 mg a day, and her Travatan eyedrops as she was taking before. cc: London Le MD
[2019-06-26 12:43] LABS: EOS# 0.01 X1000 (0.0-0.7); EOS% 1.9 % (0.0-10.0); HEMATOCRIT 21.8 % (37.0-47.0); IMM GRAN# 0.03 X1000 (0.0-0.04); IMM GRAN% 5.8 % (0.0-0.5); LYMPH# 0.16 X1000 (1.2-3.4); LYMPH% 30.8 % (20.5-51.1); MCH 27.7 PG (27-31); MCHC 32.1 g/dL (33-37); MCV 86.2 FL (81-99); MONO# 0.04 X1000 (0.11-0.59); MONO% 7.7 % (1.7-9.3); MPV 11.2 FL (7.4-10.4); NEUT# 0.28 X1000 (1.4-6.5); NEUT% 53.8 % (42.2-75.2); PLT 188 X1000 (130-400); RBC 2.53 XMIL (4.2-5.4); RDW 16.6 % (11.5-14.5); WBC 0.52 X1000 (4.8-10.8)
== END 2019-06-26 13:06 | disposition home or self-care (01) | DRG 809 ==
LOC: DIRADM 10:24 → SUATTDRO 10:24 → 3N 11:12
PROVIDERS: ATTEND Emergency Medicine